=== PATIENT | female | born 1985 | race Caucasian/White ===

== ENCOUNTER 2016-08-01 07:38 | Emergency (ER) | payer OTHER ==
[~2016-08-01] VITALS: Wt 85.0 kg
[~2016-08-01 07:38] MED LIST: AMLO-218 PO; ASPI-664 PO; ATOR40TA68 PO; BUME2TAB18 PO; CALC667C PO; CARV25TA97 PO; CLON-379 PO; CYCL-319 PO; FLUO20CA38 PO; FOLI-49 PO; HYDR-3671 PO; HYDR-906 PO; IPRA12.93 IH; ISOS60TA PO; LOSA50TA6 PO; MECL25TA2 PO; NEPH PO; NIFE60TA7 PO; NOVO3I SC; PANT40TA3 PO
[2016-08-01] MEDS ORDERED: NAPR-260 PO (08:11)
--- NOTE | 2016-08-01 08:17 | ERD ---
ER Documentation Chief Complaint Date/Time DATE: 08/01/16 TIME: 08:14 Chief Complaint sore throat and coughing and mild abd pain for a few days. HPI 30 year old female comes in with sore throat, cough, upper abdominal pain, tactile fevers x 2 days. She describes general myalgias as well. No shortness of breath or chest pain. She denies travel history. ROS All systems reviewed and are negative except as per history of present illness. Medications Home Meds Active Scripts Naproxen* (Naprosyn*) 500 Mg Tablet, 500 MG PO BID Y for PAIN AND/OR INFLAMMATION, #30 TAB Prov:ZAC PADRON PA-C 08/01/16 Cyclobenzaprine Hcl* (Cyclobenzaprine Hcl*) 10 Mg Tablet, 10 MG PO TID, #15 TAB Prov:JAYJAY JAQUEZ INDEPENDENT [employer]ENT 05/26/16 Hydrocodone/Acetaminophen ([place] 5-325 Tablet) 1 Each Tablet, 1 TAB PO Q6H Y for SEVERE PAIN LEVEL 7-10, #7 TAB Prov:JAYJAY JAQUEZ NP 05/26/16 Insulin Aspart* (Novolog Insulin Pen*) 100 Unit/Ml Soln, 0 UNIT SC WITH MEALS BEDTIME, #2 BOX Prov:MONICA BRANDON 04/21/14 Amlodipine Besylate* (Norvasc*) 10 Mg Tablet, 10 MG PO DAILY for High Blood pressure , #60 TAB Prov:NEGRA WHITE MD 04/12/14 Carvedilol* (Coreg*) 25 Mg Tab, 25 MG PO BID for heart , #60 Prov:NEGRA WHITE MD 04/12/14 Reported Medications Nifedipine* (Nifedipine ER*) 60 Mg Tablet.sa, 60 MG PO DAILY, TAB.SA 04/15/14 Hydralazine Hcl* (Hydralazine Hcl*) 25 Mg Tab, 25 MG PO Q8, TAB 04/14/14 Calcium Acetate* (Calcium Acetate*) 667 Mg Capsule, 667 MG PO WITH MEALS, CAP 04/14/14 Multivit/Ca Carb/B Cmplx/Fa* (Syeda-Susie*) 1 Tab Tab, 1 TAB PO DAILY, TAB 04/14/14 Losartan Potassium* (Losartan Potassium*) 50 Mg Tablet, 50 MG PO DAILY, TAB 04/14/14 Folic Acid* (Folic Acid*) 1 Mg Tablet, 1 MG PO DAILY, TAB 04/14/14 Isosorbide Mononitrate* (Isosorbide Mononitrate*) 60 Mg Tab.er.24h, 60 MG PO DAILY, TAB 04/14/14 Clonidine Hcl* (Clonidine Hcl*) 0.1 Mg Tab, 0.1 MG PO Q6, TAB 04/05/14 Aspirin* (Aspirin* (EC)) 81 Mg Tablet.dr, 81 MG PO DAILY, TAB 04/05/14 Pantoprazole* (Protonix*) 40 Mg Tablet.dr, 40 MG PO AC BREAKFAST, TAB 01/11/14 Meclizine Hcl* (Antivert*) 25 Mg Tablet, 25 MG PO TID, TAB 01/11/14 Ipratropium [place]* (Atrovent HFA*) 12.9 Gm Aer.w.adap, 2 PUFF IH QID Y for SHORTNESS OF BREATH, EA 01/11/14 Fluoxetine Hcl* (Prozac*) 20 Mg Capsule, 20 MG PO DAILY, CAP 01/11/14 Bumetanide* (Bumetanide*) 2 Mg Tablet, 2 MG PO BID, TAB 01/11/14 Atorvastatin* (Atorvastatin*) 40 Mg Tablet, 40 MG PO HS, TAB 01/11/14 Allergies Allergies: Coded Allergies: No Known Allergy (Unverified , 05/26/16) PMhx/Soc History of Surgery: Yes (left upper arm a/v shunt, dialysis shunt right upper chest) Anesthesia Reaction: No Hx Neurological Disorder: No Hx Respiratory Disorders: No Hx Cardiac Disorders: Yes (htn, dm) Hx Psychiatric Problems: Yes (DEPRESSION) Hx Miscellaneous Medical Probl: Yes (legally blind) Hx Alcohol Use: No Hx Substance Use: No Hx Tobacco Use: No Physical Exam Vitals Vital Signs Date Time Temp Pulse Resp B/P Pulse Ox O2 Delivery O2 Flow Rate FiO2 08/01/16 07:46 98.8 88 21 169/81 98 Physical Exam General: Well-developed, well-nourished. The patient appears in no acute distress. HEENT: Head is normocephalic, atraumatic. No scleral icterus. Pupils are equal , round, and reactive. Oral mucous membranes are moist. No pharyngeal erythema. Neck: Supple. Nontender. Lungs: Clear to auscultation. Normal air movement. Heart: Regular rate and rhythm. S1 and S2 are normal. No murmurs, gallops, or rubs. Abdomen: Soft, nontender, nondistended. Bowel sounds are normoactive. Extremities: No clubbing or cyanosis. Normal pulses. Moving extremities x 4. No weakness. Neurologic: Alert and oriented 3. No focal deficits. Skin: Normal turgor. No rash or lesions. Results 24 hrs Current Medications Medications (Trade) Dose Ordered Sig/[place]ba Route PRN Reason Start Time Stop Time Status Last Admin Dose Admin Acetaminophen (Tylenol Tab) 650 mg ONCE ONCE PO 08/01/16 08:30 08/01/16 08:31 Ibuprofen (Motrin) 600 mg ONCE ONCE PO 08/01/16 08:30 08/01/16 08:31 Procedures/MDM ER COURSE: She was given tylenol and motrin weight based dosing. The patient is a 30 year old female who comes in with an acute upper respiratory infection, presumed viral. The patient has a differential diagnosis of a viral upper respiratory infection, bacterial upper respiratory infection, bronchitis, pneumonia, pharyngitis, laryngitis, epiglottitis, croup, pneumonia. Patient has a normal pulmonary examination, clear breath sounds, normal pulse oximetry, with no corrective measures needed at this time. Fluids, rest, antipyretics were encouraged. Departure Diagnosis: Primary Impression: Viral syndrome Condition: Good Patient Instructions: Viral Syndrome (Adult) Additional Instructions: Call your primary care doctor TOMORROW for an appointment during the next 1-2 days.See the doctor sooner or return here if your condition worsens before your appointment time. ZAC PADRON PA-C Aug 01, 2016 08:17
[2016-08-01] MEDS ORDERED: IBUPROFEN 600 MG TAB PO ONE (08:30)
[2016-08-01] MEDS ORDERED: ACETAMINOPHEN 325 MG TAB PO ONE (08:30)
== END 2016-08-01 08:31 | disposition home or self-care (01) ==
LOC: FTE 07:38
DX: B34.9 Viral infection, unspecified (principal); E11.9 Type 2 diabetes mellitus without complications; I12.0 Hypertensive chronic kidney disease with stage 5 chronic kidney disease or end stage renal disease; N18.6 End stage renal disease; Z79.82 Long term (current) use of aspirin; Z99.2 Dependence on renal dialysis; Z79.4 Long term (current) use of insulin
CPT/HCPCS: Z7502; Z7610; 99283

== ENCOUNTER 2016-08-01 11:00 | Emergency (ER) | payer OTHER ==
[~2016-08-01] VITALS: Ht 170.2 cm; Wt 85.0 kg
[~2016-08-01 11:00] MED LIST changes: +NAPR-260 PO
[2016-08-01 11:04] VITALS: Ht 170.2 cm; Wt 85.0 kg
[2016-08-01] MEDS ORDERED: SOD CHLORIDE 0.9% 500 ML IV STA (11:56)
[2016-08-01] MEDS ORDERED: KETOROLAC 15 MG INJ IV STA (11:56)
[2016-08-01] MEDS ORDERED: LORAZEPAM 2 MG INJ IV ONE (12:00)
== END 2016-08-01 12:26 | disposition left against medical advice (07) ==
LOC: E/R 11:00
DX: Z53.21 Procedure and treatment not carried out due to patient leaving prior to being seen by health care provider (principal)
CPT/HCPCS: J7040

== ENCOUNTER 2016-12-24 06:30 | Day surgery (SDC) | payer BC, OTHER ==
[2016-12-23 09:49] VITALS: BMI 30.4
[~2016-12-24] VITALS: Ht 170.2 cm; Wt 89.5 kg
[2016-12-24 07:00] VITALS: BP 137/71; PULSE 74; RESP 18; Ht 170.2 cm; Wt 89.5 kg
[2016-12-24] MEDS ORDERED: INSULIN ASPART [NOVOLOG] 3 ML PEN SC ONE ×3 (07:30→10:00)
[2016-12-24] MEDS ORDERED: THROMBIN 5000 UNIT VIAL ONE (07:43)
[2016-12-24] MEDS ORDERED: LIDOCAINE 1% (STERILE-PAK) 30 ML INJ ONE (07:43)
[2016-12-24] MEDS ORDERED: BUPIVACAINE 0.5% (SDV) 30 ML INJ ONE (07:43)
[2016-12-24] MEDS ORDERED: GELATIN SIZE 100 SPONGE ONE (07:43)
[2016-12-24] MEDS ORDERED: HEPARIN 1000 UNITS/ML 10 ML INJ ONE (07:43)
[2016-12-24 07:46] LABS: ADD SCAN DIFF NO
[2016-12-24 07:59] LABS: BASOPHIL # 0.1 10^3/ul (0.0-0.1); BASOPHILS % 0.7 % (0.0-2.0); EOSINOPHILS # 0.3 10^3/ul (0.0-0.5); EOSINOPHILS % 2.7 % (0.0-7.0); HEMATOCRIT 31.6 % (37.0-47.0); HEMOGLOBIN 10.7 g/dl (12.0-16.0); LYMPHOCYTES # 1.2 10^3/ul (0.8-2.9); LYMPHOCYTES % 11.5 % (15.0-51.0); MEAN CORPUSCULAR HEMOGLOBIN 31.6 pg (29.0-33.0); MEAN CORPUSCULAR HGB CONC 33.9 g/dl (32.0-37.0); MEAN CORPUSCULAR VOLUME 93.2 fl (82.0-101.0); MONOCYTE # 0.9 10^3/ul (0.3-0.9); MONOCYTES % 8.3 % (0.0-11.0); NEUTROPHIL # 8.1 10^3/ul (1.6-7.5); NEUTROPHILS % 76.4 % (39.0-77.0); PLATELET COUNT 166 10^3/UL (140-415); RED BLOOD COUNT 3.39 10^6/ul (4.20-5.40); RED CELL DISTRIBUTION WIDTH 13.9 % (11.5-14.5); WHITE BLOOD COUNT 10.5 10^3/ul (4.8-10.8)
[2016-12-24] MEDS ORDERED: ETOMIDATE 20 MG INJ ONE (08:02)
[2016-12-24] MEDS ORDERED: SUCCINYLCHOLINE CHLORIDE 100 MG/5 ML SYG IV ONE (08:02)
[2016-12-24] MEDS ORDERED: LIDOCAINE 1% (MDV) 20 ML INJ ONE (08:03)
[2016-12-24] MEDS ORDERED: ROCURONIUM 50 MG INJ ONE (08:04)
[2016-12-24 08:17] LABS: INR 0.92; PARTIAL THROMBOPLASTIN TIME 32.2 Sec (25.0-35.0); PROTIME 12.4 Sec (12.2-14.2)
--- NOTE | 2016-12-24 08:26 | RADRPT ---
PROCEDURE: XR Chest 1 View. CLINICAL INDICATION: Abnormal breath sounds, preop. TECHNIQUE: AP view of the chest was obtained. COMPARISON: April 27, 2016 FINDINGS: The cardiomediastinal silhouette is within normal limits. Right-sided dialysis catheter has its tip in the expected location of the cavoatrial junction. No consolidations are identified. No pneumotho rax is seen. Osseous structures are intact. IMPRESSION: No visualized active disease. RPTAT: AA .Regino Rangel MD, MD Date Time Electronically viewed and signed by .Regino Rangel MD, MD on 12/24/2016 08:26 .P/
[2016-12-24 08:45] LABS: ALBUMIN 4.5 g/dl (3.3-4.9); ALBUMIN/GLOBULIN RATIO 1.45; TOTAL PROTEIN 7.6 g/dl (6.1-8.1)
[2016-12-24 08:46] LABS: POTASSIUM 4.7 mmol/L (3.5-5.1)
[2016-12-24 08:48] LABS: CALCIUM 6.9 mg/dl (8.4-10.2); CREATININE 8.87 mg/dl (0.44-1.00)
[2016-12-24 09:30] VITALS: BP 151/77; PULSE 76; RESP 20
[2016-12-24] MEDS ORDERED: INSULIN REGULAR 10 ML INJ IV ONE (09:30)
--- NOTE | 2016-12-24 10:14 | RADRPT ---
Vent Rate: 73 bpm RR Interval: 0 msec [place] Interval: 162 msec QRS Duration: 94 msec QT Interval: 464 msec QTC Interval: 511 msec P-R-T [place]: 59 - 49 - 115 degrees Normal sinus rhythm T wave abnormality, consider lateral ischemia Prolonged QT Abnormal ECG Electronically Signed By: Curtis Guillermo [id number]
[2016-12-24] MEDS ORDERED: HYDR-3671 PO (10:45)
[2016-12-24] MEDS ORDERED: CARV25TA79 PO (10:46)
[2016-12-24] MEDS ORDERED: LANT3I SC (10:46)
[2016-12-24] MEDS ORDERED: AMLO5TAB4 PO (10:47)
[2016-12-24] MEDS ORDERED: FOLI1CAP8 PO (10:48)
[2016-12-24] MEDS ORDERED: LISI20TA11 PO (10:48)
[2016-12-24] MEDS ORDERED: DIVA500T15 PO (10:48)
[2016-12-24] MEDS ORDERED: IBUP800T25 PO (10:49)
[2016-12-24] MEDS ORDERED: MIDAZOLAM 1 MG/ML 2 ML INJ ONE (12:00)
[2016-12-24] MEDS ORDERED: ACET325T33 PO (13:18)
== END 2016-12-24 09:30 | disposition home or self-care (01) ==
LOC: SDS 06:30
PROVIDERS: ATTEND Surgery
DX: I12.0 Hypertensive chronic kidney disease with stage 5 chronic kidney disease or end stage renal disease (principal); N18.6 End stage renal disease; Z53.9 Procedure and treatment not carried out, unspecified reason; E11.9 Type 2 diabetes mellitus without complications; G40.909 Epilepsy, unspecified, not intractable, without status epilepticus
CPT/HCPCS: 71010; 80053; 82962; 84703; 85025; 85610; 85730; 93005; J1815; J2250; J7999; J1644; J3010

== ENCOUNTER 2016-12-24 09:48 | Emergency (ER) | payer BC, OTHER ==
[~2016-12-24] VITALS: Ht 160 cm; Wt 91.0 kg
[2016-12-24 09:53] VITALS: Ht 160 cm; Wt 91.0 kg
[2016-12-24] MEDS ORDERED: ONDANSETRON 4 MG INJ IV STA (10:01)
[2016-12-24] MEDS ORDERED: morphine 4 MG/ML VIAL IV STA (10:01)
[2016-12-24 10:11] LABS: ADD SCAN DIFF NO
[2016-12-24 10:17] LABS: BASOPHIL # 0.1 10^3/ul (0.0-0.1); BASOPHILS % 0.5 % (0.0-2.0); EOSINOPHILS # 0.2 10^3/ul (0.0-0.5); EOSINOPHILS % 2.3 % (0.0-7.0); HEMATOCRIT 32.5 % (37.0-47.0); LYMPHOCYTES # 1.4 10^3/ul (0.8-2.9); LYMPHOCYTES % 13.5 % (15.0-51.0); MEAN CORPUSCULAR HEMOGLOBIN 31.7 pg (29.0-33.0); MEAN CORPUSCULAR HGB CONC 33.8 g/dl (32.0-37.0); MEAN CORPUSCULAR VOLUME 93.7 fl (82.0-101.0); MEAN PLATELET VOLUME 11.8 fl (7.4-10.4); MONOCYTE # 0.9 10^3/ul (0.3-0.9); MONOCYTES % 8.2 % (0.0-11.0); NEUTROPHIL # 7.9 10^3/ul (1.6-7.5); NEUTROPHILS % 75.2 % (39.0-77.0); PLATELET COUNT 177 10^3/UL (140-415); RED BLOOD COUNT 3.47 10^6/ul (4.20-5.40); RED CELL DISTRIBUTION WIDTH 13.7 % (11.5-14.5); WHITE BLOOD COUNT 10.5 10^3/ul (4.8-10.8)
[2016-12-24 10:31] LABS: CALCIUM 7.2 mg/dl (8.4-10.2); CREATININE 9.16 mg/dl (0.44-1.00); POTASSIUM 4.5 mmol/L (3.5-5.1)
[2016-12-24] MEDS ORDERED: HYDR-3671 PO (10:45)
[2016-12-24] MEDS ORDERED: CARV25TA79 PO (10:46)
[2016-12-24] MEDS ORDERED: LANT3I SC (10:46)
[2016-12-24] MEDS ORDERED: AMLO5TAB4 PO (10:47)
[2016-12-24] MEDS ORDERED: FOLI1CAP8 PO (10:48)
[2016-12-24] MEDS ORDERED: DIVA500T15 PO (10:48)
[2016-12-24] MEDS ORDERED: LISI20TA11 PO (10:48)
[2016-12-24] MEDS ORDERED: IBUP800T25 PO (10:49)
[2016-12-24] MEDS ORDERED: CALCIUM GLUCONATE 10% 1 GM in SOD CHLORIDE 0.9% 100 ML IVPB ONE (11:00)
[2016-12-24] MEDS ORDERED: ACET325T33 PO (13:18)
--- NOTE | 2016-12-24 13:34 | ERD ---
ER Documentation Chief Complaint Date/Time DATE: 12/24/16 TIME: 13:34 Chief Complaint SENT TO ED FROM SAME DAY SURGERY D/Y ELEVATED BLOOD GLUCOSE HPI Patient is a 31-year-old female with dialysis, diabetes, and hypertension who presents for high blood sugar. She was at same-day surgery to get a fistula placed today. She had hyperglycemia and was given 2 doses of insulin. She started with bilateral leg cramps and came to the emergency department screaming in pain. The gentleman that is with her says that this is similar to her pain that she has had in the past. She takes [place]. She did not receive her dialysis today. Upon review of old medical records the patient has multiple visits to the ER for various complaints. Review of the emergency department information exchange shows visits to 4 separate emergency departments. ROS All systems reviewed and are negative except as per history of present illness. Medications Home Meds Active Scripts Acetaminophen* (Tylenol*) 325 Mg Tablet, 2 TAB PO Q6 Y for PAIN AND OR ELEVATED TEMP, #20 TAB Prov:REBEKA PAYNE MD 12/24/16 Reported Medications Ibuprofen* (Motrin*) 800 Mg Tab, 800 MG PO TID Y for PAIN, TAB 12/24/16 Lisinopril* (Lisinopril*) 20 Mg Tablet, 20 MG PO DAILY, #30 TAB 12/24/16 Divalproex Sodium* (Divalproex ER*) 500 Mg Tab.er.24h, 500 MG PO QHS, #30 TAB.SA 12/24/16 Folic Acid/Vitamin B Comp W-C (TERESTIA CAPS SOFTGEL) 1 Mg Capsule, 1 MG PO DAILY, CAP 12/24/16 Amlodipine Besylate* (Norvasc*) 5 Mg Tablet, 5 MG PO DAILY, TAB 12/24/16 Insulin Glargine* (Lantus*) 100 Unit/Ml Soln, 25 UNIT SC QHS, #1 VIAL 12/24/16 Carvedilol* (Carvedilol*) 25 Mg Tablet, 25 MG PO BID, #60 TAB 12/24/16 Hydralazine Hcl* (Hydralazine Hcl*) 25 Mg Tab, 25 MG PO BID Y for ELEVATED BLOOD PRESSURE, #60 TAB 12/24/16 Folic Acid* (Folic Acid*) 1 Mg Tablet, 1 MG PO DAILY, TAB 04/14/14 Aspirin* (Aspirin* (EC)) 81 Mg Tablet.dr, 81 MG PO DAILY, TAB 04/05/14 Fluoxetine Hcl* (Prozac*) 20 Mg Capsule, 20 MG PO DAILY, CAP 01/11/14 Atorvastatin* (Atorvastatin*) 40 Mg Tablet, 40 MG PO HS, TAB 01/11/14 Discontinued Reported Medications Nifedipine* (Nifedipine ER*) 60 Mg Tablet.sa, 60 MG PO DAILY, TAB.SA 04/15/14 Hydralazine Hcl* (Hydralazine Hcl*) 25 Mg Tab, 25 MG PO Q8, TAB 04/14/14 Calcium Acetate* (Calcium Acetate*) 667 Mg Capsule, 667 MG PO WITH MEALS, CAP 04/14/14 Multivit/Ca Carb/B Cmplx/Fa* (Syeda-Susie*) 1 Tab Tab, 1 TAB PO DAILY, TAB 04/14/14 Losartan Potassium* (Losartan Potassium*) 50 Mg Tablet, 50 MG PO DAILY, TAB 04/14/14 Isosorbide Mononitrate* (Isosorbide Mononitrate*) 60 Mg Tab.er.24h, 60 MG PO DAILY, TAB 04/14/14 Clonidine Hcl* (Clonidine Hcl*) 0.1 Mg Tab, 0.1 MG PO Q6, TAB 04/05/14 Pantoprazole* (Protonix*) 40 Mg Tablet.dr, 40 MG PO AC BREAKFAST, TAB 01/11/14 Meclizine Hcl* (Antivert*) 25 Mg Tablet, 25 MG PO TID, TAB 01/11/14 Ipratropium [place]* (Atrovent HFA*) 12.9 Gm Aer.w.adap, 2 PUFF IH QID Y for SHORTNESS OF BREATH, EA 01/11/14 Bumetanide* (Bumetanide*) 2 Mg Tablet, 2 MG PO BID, TAB 01/11/14 Discontinued Scripts Naproxen* (Naprosyn*) 500 Mg Tablet, 500 MG PO BID Y for PAIN AND/OR INFLAMMATION, #30 TAB Prov:ZAC PADRON PA-C 08/01/16 Cyclobenzaprine Hcl* (Cyclobenzaprine Hcl*) 10 Mg Tablet, 10 MG PO TID, #15 TAB Prov:JAYJAY JAQUEZ NP 05/26/16 Hydrocodone/Acetaminophen ([place] 5-325 Tablet) 1 Each Tablet, 1 TAB PO Q6H Y for SEVERE PAIN LEVEL 7-10, #7 TAB Prov:JAYJAY JAQUEZ NP 05/26/16 Insulin Aspart* (Novolog Insulin Pen*) 100 Unit/Ml Soln, 0 UNIT SC WITH MEALS BEDTIME, #2 BOX Prov:MONICA BRANDON 04/21/14 Amlodipine Besylate* (Norvasc*) 10 Mg Tablet, 10 MG PO DAILY for High Blood pressure , #60 TAB Prov:NEGRA WHITE MD 04/12/14 Carvedilol* (Coreg*) 25 Mg Tab, 25 MG PO BID for heart , #60 Prov:NEGRA WHITE MD 04/12/14 Allergies Allergies: Coded Allergies: No Known Allergy (Unverified , 12/24/16) PMhx/Soc History of Surgery: Yes (EYE DIALYSIS SHUNT SX, PERMA CATH PLACEMENT ) Anesthesia Reaction: No Hx Neurological Disorder: Yes (BLIND EYES ) Hx Respiratory Disorders: No Hx Cardiac Disorders: Yes (HTN ) Hx Psychiatric Problems: Yes (EPILIPSY , DEPRESSION ) Hx Miscellaneous Medical Probl: Yes (PERMACATH RIGHT UPPER CHEST , AV SHUNT LEFT ARM ) Hx Alcohol Use: No Hx Substance Use: No Hx Tobacco Use: No Smoking Status: Never smoker FmHx Family History: diabetes Physical Exam Vitals Vital Signs Date Time Temp Pulse Resp B/P Pulse Ox O2 Delivery O2 Flow Rate FiO2 12/24/16 11:00 86 16 122/62 100 12/24/16 09:53 98.9 78 16 168/91 100 Physical Exam Const: Moderate distress secondary to pain Head: Atraumatic Eyes: Blindness bilaterally chronic ENT: Normal External Ears, Nose and Mouth. Neck: Full range of motion..~ No meningismus. Resp: Clear to auscultation bilaterally Cardio: Regular rate and rhythm, no murmurs Abd: Soft, non tender, non distended. Normal bowel sounds Skin: No petechiae or rashes Back: No midline or flank tenderness Ext: No cyanosis, or edema, pulses to the lower extremities bilateral Neur: Awake Result Diagram: 12/24/16 1002 12/24/16 1002 Results 24 hrs Laboratory Tests Test 12/24/16 09:53 12/24/16 10:02 Bedside Glucose 266mg/dL White Blood Count 10.510^3/ul Red Blood Count 3.4710^6/ul Hemoglobin 11.0g/dl Hematocrit 32.5% Mean Corpuscular Volume 93.7fl Mean Corpuscular Hemoglobin 31.7pg Mean Corpuscular Hemoglobin Concent 33.8g/dl Red Cell Distribution Width 13.7% Platelet Count 68690^3/UL Mean Platelet Volume 11.8fl Neutrophils % 75.2% Lymphocytes % 13.5% Monocytes % 8.2% Eosinophils % 2.3% Basophils % 0.5% Nucleated Red Blood Cells % 0.0/100WBC Neutrophils # 7.910^3/ul Lymphocytes # 1.410^3/ul Monocytes # 0.910^3/ul Eosinophils # 0.210^3/ul Basophils # 0.110^3/ul Nucleated Red Blood Cells # 0.010^3/ul Sodium Level 133mmol/L Potassium Level 4.5mmol/L Chloride Level 98mmol/L Carbon Dioxide Level 18mmol/L Anion Gap 22 Blood Urea Nitrogen 65mg/dl Creatinine 9.16mg/dl Glucose Level 243mg/dl Calcium Level 7.2mg/dl Current Medications Medications (Trade) Dose Ordered Sig/[place] Route PRN Reason Start Time Stop Time Status Last Admin Dose Admin Morphine Sulfate (morphine) 4 mg ONCE STAT IV 12/24/16 10:01 12/24/16 10:02 DC 12/24/16 10:06 Ondansetron HCl 4 mg 4 mg ONCE STAT IV 12/24/16 10:01 12/24/16 10:02 DC 12/24/16 10:05 Calcium Gluconate/ Sodium Chloride (Ca Gluc/NS) 110 ml @ 110 mls/hr ONCE ONCE IVPB 12/24/16 11:00 12/24/16 11:59 DC 12/24/16 11:45 Procedures/MDM EKG read by me: Rate/Rhythm: Regular rate and rhythm at a normal rate Intervals: Normal Impression: No evidence of ischemia or arrhythmia Patient is a 31-year-old female who presents for hyperglycemia and leg cramping. The patient was found to have low calcium and was given 1 amp of calcium gluconate. Her potassium is normal at 4.5. She is chronic renal failure. There is no sign of ischemia or infection to the lower extremities bilaterally. She has a history of chronic pain. I believe outpatient management is appropriate at this point. I spoke with Dr. Goldstein who asked me to call Dr. Leon the vascular surgeon to see if the patient could have her fistula placed. He is unable to do the fistula at this time and the patient will need to reschedule. I did call the dialysis center and the patient will go directly from the emergency department to dialysis today. She can return for any worsening symptoms. Departure Diagnosis: Primary Impression: Cramps of lower extremity Laterality: bilateral Qualified Code: R25.2 - Cramp of both lower extremities Additional Impressions: Chronic pain Chronic pain type: other chronic pain Qualified Code: G89.29 - Other chronic pain Hyperglycemia Hypocalcemia Condition: Fair Patient Instructions: Hyperglycemia (High Blood Sugar) Additional Instructions: Go directly to your dialysis center for dialysis today. REBEKA PAYNE MD Dec 24, 2016 13:34
[2016-12-24 14:35] VITALS: BP 128/74; PULSE 74; RESP 19; TEMP 98.2
== END 2016-12-24 14:38 | disposition home or self-care (01) ==
LOC: E/R 09:48
DX: R25.2 Cramp and spasm (principal); G89.29 Other chronic pain; E83.51 Hypocalcemia; E11.65 Type 2 diabetes mellitus with hyperglycemia; I10 Essential (primary) hypertension; Z79.4 Long term (current) use of insulin; Z79.82 Long term (current) use of aspirin
CPT/HCPCS: 80048; 82962; 85025; J0610; J2270; J2405; 36415; 93005; 96374; 96375

== ENCOUNTER 2016-12-29 07:25 | Emergency (ER) | payer BC, OTHER ==
[~2016-12-29] VITALS: Wt 88.6 kg
[~2016-12-29 07:25] MED LIST changes: +ACET325T33 PO; -AMLO-218 PO; +AMLO5TAB4 PO; -BUME2TAB18 PO; -CALC667C PO; +CARV25TA79 PO; -CARV25TA97 PO; -CLON-379 PO; -CYCL-319 PO; +DIVA500T15 PO; +FOLI1CAP8 PO; -HYDR-906 PO; +IBUP800T25 PO; -IPRA12.93 IH; -ISOS60TA PO; +LANT3I SC; +LISI20TA11 PO; -LOSA50TA6 PO; -MECL25TA2 PO; -NAPR-260 PO; -NEPH PO; -NIFE60TA7 PO; -NOVO3I SC; -PANT40TA3 PO
[2016-12-29] MEDS ORDERED: FAMOTIDINE 20 MG INJ IV STA (08:28)
[2016-12-29] MEDS ORDERED: ONDANSETRON 4 MG INJ IV STA (08:28)
[2016-12-29 09:17] LABS: ADD SCAN DIFF NO
[2016-12-29 09:22] LABS: BASOPHIL # 0.1 10^3/ul (0.0-0.1); BASOPHILS % 0.8 % (0.0-2.0); EOSINOPHILS # 0.3 10^3/ul (0.0-0.5); EOSINOPHILS % 3.2 % (0.0-7.0); HEMATOCRIT 33.8 % (37.0-47.0); HEMOGLOBIN 11.1 g/dl (12.0-16.0); LYMPHOCYTES # 0.9 10^3/ul (0.8-2.9); LYMPHOCYTES % 10.4 % (15.0-51.0); MEAN CORPUSCULAR HEMOGLOBIN 30.7 pg (29.0-33.0); MEAN CORPUSCULAR HGB CONC 32.8 g/dl (32.0-37.0); MEAN CORPUSCULAR VOLUME 93.6 fl (82.0-101.0); MEAN PLATELET VOLUME 11.2 fl (7.4-10.4); MONOCYTE # 0.8 10^3/ul (0.3-0.9); MONOCYTES % 8.6 % (0.0-11.0); NEUTROPHIL # 6.9 10^3/ul (1.6-7.5); NEUTROPHILS % 76.6 % (39.0-77.0); PLATELET COUNT 223 10^3/UL (140-415); RED BLOOD COUNT 3.61 10^6/ul (4.20-5.40); RED CELL DISTRIBUTION WIDTH 13.8 % (11.5-14.5)
[2016-12-29 10:25] LABS: ALBUMIN 4.5 g/dl (3.3-4.9); ALBUMIN/GLOBULIN RATIO 1.45; CALCIUM 7.4 mg/dl (8.4-10.2); CREATININE 9.78 mg/dl (0.44-1.00); POTASSIUM 5.2 mmol/L (3.5-5.1); TOTAL PROTEIN 7.6 g/dl (6.1-8.1)
--- NOTE | 2016-12-29 10:43 | ERD ---
ER Documentation Chief Complaint Date/Time DATE: 12/29/16 TIME: 10:41 Chief Complaint unresolved n/v x4 days, blind hx diabetes, last dialysis tue. HPI This is a 31-year-old female with a history of progressive uncontrolled diabetes , subsequent blindness, and dialysis presents to the emergency room for evaluation of nausea and vomiting for the past 4 days. The patient states that she has vomited twice and is felt nauseous. She denies any diarrhea. She states that she gets dialysis Tuesday, Tuesday, Tuesday and came to the ER today for evaluation of nausea ROS All systems reviewed and are negative except as per history of present illness. Medications Home Meds Active Scripts Acetaminophen* (Tylenol*) 325 Mg Tablet, 2 TAB PO Q6 Y for PAIN AND OR ELEVATED TEMP, #20 TAB Prov:REBEKA PAYNE MD 12/24/16 Reported Medications Ibuprofen* (Motrin*) 800 Mg Tab, 800 MG PO TID Y for PAIN, TAB 12/24/16 Lisinopril* (Lisinopril*) 20 Mg Tablet, 20 MG PO DAILY, #30 TAB 12/24/16 Divalproex Sodium* (Divalproex ER*) 500 Mg Tab.er.24h, 500 MG PO QHS, #30 TAB.SA 12/24/16 Folic Acid/Vitamin B Comp W-C (TERESITA CAPS SOFTGEL) 1 Mg Capsule, 1 MG PO DAILY, CAP 12/24/16 Amlodipine Besylate* (Norvasc*) 5 Mg Tablet, 5 MG PO DAILY, TAB 12/24/16 Insulin Glargine* (Lantus*) 100 Unit/Ml Soln, 25 UNIT SC QHS, #1 VIAL 12/24/16 Carvedilol* (Carvedilol*) 25 Mg Tablet, 25 MG PO BID, #60 TAB 12/24/16 Hydralazine Hcl* (Hydralazine Hcl*) 25 Mg Tab, 25 MG PO BID Y for ELEVATED BLOOD PRESSURE, #60 TAB 12/24/16 Folic Acid* (Folic Acid*) 1 Mg Tablet, 1 MG PO DAILY, TAB 04/14/14 Aspirin* (Aspirin* (EC)) 81 Mg Tablet.dr, 81 MG PO DAILY, TAB 04/05/14 Fluoxetine Hcl* (Prozac*) 20 Mg Capsule, 20 MG PO DAILY, CAP 01/11/14 Atorvastatin* (Atorvastatin*) 40 Mg Tablet, 40 MG PO HS, TAB 01/11/14 Discontinued Reported Medications Nifedipine* (Nifedipine ER*) 60 Mg Tablet.sa, 60 MG PO DAILY, TAB.SA 04/15/14 Hydralazine Hcl* (Hydralazine Hcl*) 25 Mg Tab, 25 MG PO Q8, TAB 04/14/14 Calcium Acetate* (Calcium Acetate*) 667 Mg Capsule, 667 MG PO WITH MEALS, CAP 04/14/14 Multivit/Ca Carb/B Cmplx/Fa* ([place]eda-Susie*) 1 Tab Tab, 1 TAB PO DAILY, TAB 04/14/14 Losartan Potassium* (Losartan Potassium*) 50 Mg Tablet, 50 MG PO DAILY, TAB 04/14/14 Isosorbide Mononitrate* (Isosorbide Mononitrate*) 60 Mg Tab.er.24h, 60 MG PO DAILY, TAB 04/14/14 Clonidine Hcl* (Clonidine Hcl*) 0.1 Mg Tab, 0.1 MG PO Q6, TAB 04/05/14 Pantoprazole* (Protonix*) 40 Mg Tablet.dr, 40 MG PO AC BREAKFAST, TAB 01/11/14 Meclizine Hcl* (Antivert*) 25 Mg Tablet, 25 MG PO TID, TAB 01/11/14 Ipratropium [place]* (Atrovent HFA*) 12.9 Gm Aer.w.adap, 2 PUFF IH QID Y for SHORTNESS OF BREATH, EA 01/11/14 Bumetanide* (Bumetanide*) 2 Mg Tablet, 2 MG PO BID, TAB 01/11/14 Discontinued Scripts Naproxen* (Naprosyn*) 500 Mg Tablet, 500 MG PO BID Y for PAIN AND/OR INFLAMMATION, #30 TAB Prov:ZAC PADRON PA-C 08/01/16 Cyclobenzaprine Hcl* (Cyclobenzaprine Hcl*) 10 Mg Tablet, 10 MG PO TID, #15 TAB Prov:JAYJAY JAQUEZ NP 05/26/16 Hydrocodone/Acetaminophen ([place] 5-325 Tablet) 1 Each Tablet, 1 TAB PO Q6H Y for SEVERE PAIN LEVEL 7-10, #7 TAB Prov:JAYJAY JAQUEZ NP 05/26/16 Insulin Aspart* (Novolog Insulin Pen*) 100 Unit/Ml Soln, 0 UNIT SC WITH MEALS BEDTIME, #2 BOX Prov:MONICA BRANDON 04/21/14 Amlodipine Besylate* (Norvasc*) 10 Mg Tablet, 10 MG PO DAILY for High Blood pressure , #60 TAB Prov:NEGRA WHITE MD 04/12/14 Carvedilol* (Coreg*) 25 Mg Tab, 25 MG PO BID for heart , #60 Prov:NEGRA WHITE MD 04/12/14 Allergies Allergies: Coded Allergies: No Known Allergy (Unverified , 12/24/16) PMhx/Soc History of Surgery: Yes (EYE DIALYSIS SHUNT SX, PERMA CATH PLACEMENT ) Anesthesia Reaction: No Hx Neurological Disorder: Yes (BLIND EYES ) Hx Respiratory Disorders: No Hx Cardiac Disorders: Yes (HTN ) Hx Psychiatric Problems: Yes (EPILIPSY , DEPRESSION ) Hx Miscellaneous Medical Probl: Yes (PERMACATH RIGHT UPPER CHEST , AV SHUNT LEFT ARM, DIALYSIS) Hx Alcohol Use: No Hx Substance Use: No Hx Tobacco Use: No Smoking Status: Never smoker Physical Exam Vitals Vital Signs Date Time Temp Pulse Resp B/P Pulse Ox O2 Delivery O2 Flow Rate FiO2 12/29/16 07:34 98.3 75 20 190/95 100 Physical Exam Const: No acute distress Head: Atraumatic Eyes: Normal Conjunctiva ENT: Normal External Ears, Nose and Mouth. Neck: Full range of motion..~ No meningismus. Resp: Clear to auscultation bilaterally Cardio: Regular rate and rhythm, no murmurs Abd: Soft, non tender, non distended. Normal bowel sounds Skin: Permacath right anterior chest wall, no petechiae or rashes Back: No midline or flank tenderness Ext: No cyanosis, or edema Neur: Awake and alert Psych: Normal Mood and Affect Result Diagram: 12/29/16 0845 12/29/16 0845 Results 24 hrs Laboratory Tests Test 12/29/16 08:45 White Blood Count 9.010^3/ul Red Blood Count 3.6110^6/ul Hemoglobin 11.1g/dl Hematocrit 33.8% Mean Corpuscular Volume 93.6fl Mean Corpuscular Hemoglobin 30.7pg Mean Corpuscular Hemoglobin Concent 32.8g/dl Red Cell Distribution Width 13.8% Platelet Count 20401^3/UL Mean Platelet Volume 11.2fl Neutrophils % 76.6% Lymphocytes % 10.4% Monocytes % 8.6% Eosinophils % 3.2% Basophils % 0.8% Nucleated Red Blood Cells % 0.0/100WBC Neutrophils # 6.910^3/ul Lymphocytes # 0.910^3/ul Monocytes # 0.810^3/ul Eosinophils # 0.310^3/ul Basophils # 0.110^3/ul Nucleated Red Blood Cells # 0.010^3/ul Sodium Level 135mmol/L Potassium Level 5.2mmol/L Chloride Level 97mmol/L Carbon Dioxide Level 20mmol/L Anion Gap 23 Blood Urea Nitrogen 66mg/dl Creatinine 9.78mg/dl Glucose Level 308mg/dl Calcium Level 7.4mg/dl Total Bilirubin 0.0mg/dl Direct Bilirubin 0.00mg/dl Indirect Bilirubin 0.0mg/dl Aspartate Amino Transf (AST/SGOT) 17IU/L Alanine Aminotransferase (ALT/SGPT) 25IU/L Alkaline Phosphatase 67IU/L Total Protein 7.6g/dl Albumin 4.5g/dl Globulin 3.10g/dl Albumin/Globulin Ratio 1.45 Lipase 155U/L Current Medications Medications (Trade) Dose Ordered Sig/[place] Route PRN Reason Start Time Stop Time Status Last Admin Dose Admin Ondansetron HCl (Zofran Inj) 4 mg ONCE STAT IV 12/29/16 08:28 12/29/16 08:29 DC 12/29/16 08:50 Famotidine (Pepcid Iv) 20 mg ONCE STAT IV 12/29/16 08:28 12/29/16 08:30 DC 12/29/16 08:50 Procedures/MDM This 31-year-old female presents to the ER for evaluation of nausea and vomiting. When I evaluated this patient she was in no acute distress. The patient had no tenderness to palpation of her abdomen on my examination. Lab work was obtained which does show chronic renal insufficiency, mild hyperkalemia. The patient was given Zofran and Pepcid and when I reevaluated this patient she says she is feeling much better at this time. The patient will be discharged home with a prescription for Zofran and instructions to follow-up with dialysis today for reappointment. Departure Diagnosis: Primary Impression: Mild nausea and vomiting Additional Impressions: End stage renal disease Uncontrolled diabetes mellitus Condition: Stable MÓNICA JARA DO Dec 29, 2016 10:43
[2016-12-29] MEDS ORDERED: ONDA4TAB8 PO (10:46)
[2016-12-29] MEDS ORDERED: METOCLOPRAMIDE 10 MG INJ IV STA (11:05)
[2016-12-29 11:42] VITALS: BP 175/80; PULSE 80; RESP 17
[2016-12-29] MEDS ORDERED: HYDROCODONE/APAP (5/325) TAB PO ONE (12:00)
== END 2016-12-29 12:05 | disposition home or self-care (01) ==
LOC: E/R 07:25
DX: R11.2 Nausea with vomiting, unspecified (principal); I12.0 Hypertensive chronic kidney disease with stage 5 chronic kidney disease or end stage renal disease; N18.6 End stage renal disease; E11.9 Type 2 diabetes mellitus without complications; Z79.4 Long term (current) use of insulin; Z79.82 Long term (current) use of aspirin; Z99.2 Dependence on renal dialysis
CPT/HCPCS: 36415; 80053; 83690; 85025; 96374; 96375; 99284; J2405; J2765

== ENCOUNTER 2017-01-21 13:59 | Emergency (ER) | payer BC, OTHER ==
[~2017-01-21] VITALS: Ht 172.7 cm; Wt 90.0 kg
[~2017-01-21 13:59] MED LIST changes: +ONDA4TAB8 PO
[2017-01-21 14:01] VITALS: Ht 172.7 cm; Wt 90.0 kg
[2017-01-21] MEDS ORDERED: ONDANSETRON (ODT) 4 MG TAB ODT STA (14:56)
[2017-01-21] MEDS ORDERED: LORAZEPAM 2 MG INJ IM ONE (15:00)
[2017-01-21] MEDS ORDERED: ONDANSETRON 4 MG INJ ONE (15:17)
[2017-01-21] MEDS ORDERED: ONDANSETRON 4 MG INJ IV STA (15:19)
--- NOTE | 2017-01-21 16:20 | ERD ---
ER Documentation Chief Complaint Date/Time DATE: 01/21/17 TIME: 16:13 Chief Complaint BIB RA FOR EVAL OF N/V AFTER HD HPI 31-year-old woman brought in by EMS for complaints of nausea and vomiting status post hemodialysis. Patient has a long history of end-stage kidney disease and recurrent vomiting. She has been seen and evaluated here multiple times for similar symptoms. Patient states he fell about 2 weeks ago and injured her scalp and since then has had intermittent headaches. She states the day it happened she underwent CT scan of the brain which was unremarkable, followed by a second CT scan of the brain a week later which was read as normal as well. She denies fevers or chills, no chest pain, no paresis or paresthesias , no abdominal pain, no suicidal homicidal ideation. ROS All systems reviewed and are negative except as per history of present illness. Medications Home Meds Active Scripts Ondansetron Hcl* (Zofran*) 4 Mg Tablet, 4 MG PO Q6H for NAUSEA AND/OR VOMITING, #10 TAB Prov:MÓNICA JARA DO 12/29/16 Acetaminophen* (Tylenol*) 325 Mg Tablet, 2 TAB PO Q6 Y for PAIN AND OR ELEVATED TEMP, #20 TAB Prov:REBEKA PAYNE MD 12/24/16 Reported Medications Ibuprofen* (Motrin*) 800 Mg Tab, 800 MG PO TID Y for PAIN, TAB 12/24/16 Lisinopril* (Lisinopril*) 20 Mg Tablet, 20 MG PO DAILY, #30 TAB 12/24/16 Divalproex Sodium* (Divalproex ER*) 500 Mg Tab.er.24h, 500 MG PO QHS, #30 TAB.SA 12/24/16 Folic Acid/Vitamin B Comp W-C (TERESITA CAPS SOFTGEL) 1 Mg Capsule, 1 MG PO DAILY, CAP 12/24/16 Amlodipine Besylate* (Norvasc*) 5 Mg Tablet, 5 MG PO DAILY, TAB 12/24/16 Insulin Glargine* (Lantus*) 100 Unit/Ml Soln, 25 UNIT SC QHS, #1 VIAL 12/24/16 Carvedilol* (Carvedilol*) 25 Mg Tablet, 25 MG PO BID, #60 TAB 12/24/16 Hydralazine Hcl* (Hydralazine Hcl*) 25 Mg Tab, 25 MG PO BID Y for ELEVATED BLOOD PRESSURE, #60 TAB 12/24/16 Folic Acid* (Folic Acid*) 1 Mg Tablet, 1 MG PO DAILY, TAB 04/14/14 Aspirin* (Aspirin* (EC)) 81 Mg Tablet.dr, 81 MG PO DAILY, TAB 04/05/14 Fluoxetine Hcl* (Prozac*) 20 Mg Capsule, 20 MG PO DAILY, CAP 01/11/14 Atorvastatin* (Atorvastatin*) 40 Mg Tablet, 40 MG PO HS, TAB 01/11/14 Allergies Allergies: Coded Allergies: No Known Allergy (Unverified , 01/21/17) PMhx/Soc Chronic recurrent vomiting, hypertension, end-stage kidney disease, psychiatric illness, blindness, anxiety, diabetes mellitus History of Surgery: Yes (EYE DIALYSIS SHUNT SX, PERMA CATH PLACEMENT ) Anesthesia Reaction: No Hx Neurological Disorder: Yes (BLIND EYES ) Hx Respiratory Disorders: No Hx Cardiac Disorders: Yes (HTN ) Hx Psychiatric Problems: Yes (EPILePSY , DEPRESSION ) Hx Miscellaneous Medical Probl: Yes (PERMACATH RIGHT UPPER CHEST , AV SHUNT LEFT ARM, DIALYSIS) Hx Alcohol Use: No Hx Substance Use: No Hx Tobacco Use: No Smoking Status: Never smoker FmHx Family History: No diabetes Physical Exam Vitals Vital Signs Date Time Temp Pulse Resp B/P Pulse Ox O2 Delivery O2 Flow Rate FiO2 01/21/17 14:01 97.9 83 20 186/89 99 Physical Exam GENERAL: Well-developed, well-nourished, anxious, afebrile HEENT: Moist mucous membranes, pink conjunctiva, no cervical spine tenderness or step-off deformities, no goiter, no jaundice or icterus, extraocular movements intact without pain. No submandibular induration, and no pharyngeal erythema NEURO: Alert and oriented 3, cranial nerves II through XII intact bilaterally, pupils equal round reactive to light, no focal deficits or facial asymmetry, sensation intact distally Strength 5/5 in upper and lower extremities bilaterally CARDIAC: Regular rate and rhythm, no murmurs rubs or gallops LUNGS: Clear bilaterally no wheezing crackles or stridor ABDOMEN: Soft nontender, no guarding, no rigidity, no rebound, no psoas sign no obturator sign. Normoactive bowel sounds SKIN: Warm and dry to touch, no abrasions, contusions, or hematomas, no lacerations, no ecchymosis, no target lesions, and without ulcers EXTREMITIES: No clubbing cyanosis or edema, calves are bilaterally symmetrical, no Homans sign, no popliteal cord sign. Distal pulses equal and bilateral PSYCH: Anxious Results 24 hrs Laboratory Tests Test 01/21/17 15:01 Bedside Glucose 271mg/dL Current Medications Medications (Trade) Dose Ordered Sig/Elba Route PRN Reason Start Time Stop Time Status Last Admin Dose Admin Ondansetron HCl (Zofran Odt) 4 mg ONCE STAT ODT 01/21/17 14:56 01/21/17 15:21 DC 01/21/17 15:12 Lorazepam (Ativan) 0.5 mg ONCE ONCE IM 01/21/17 15:00 01/21/17 15:01 DC 01/21/17 15:12 Ondansetron HCl (Zofran Inj) 4 mg STK-MED ONCE .ROUTE 01/21/17 15:17 01/21/17 15:18 DC Ondansetron HCl (Zofran Inj) 4 mg ONCE STAT IV 01/21/17 15:19 01/21/17 15:23 DC 01/21/17 15:24 Oxycodone/ Acetaminophen (Percocet (5/ 325)) 1 tab ONCE ONCE PO 01/21/17 16:30 01/21/17 16:31 Procedures/MDM Patient was triaged to the waiting room initially given her initial complaints and vital signs, although after being placed in the waiting room she stopped talking and could not be properly registered so she was brought to the ED immediately. She appears anxious and has no vomiting although given her initial complaints I administered Zofran 4 mg intramuscular injection, lorazepam 0.5 mg intramuscular injection with improvement in symptoms. Patient's mental status improved to baseline and for complaints of headache she received Percocet 1 tablet p.o. Her initial hypertension improved as well. Differential diagnoses considered, included but not limited to acute coronary syndrome, pulmonary embolism, aortic dissection, abdominal aortic aneurysm, sepsis, stroke, meningitis, encephalitis, pneumonia, appendicitis, cholecystitis , bowel obstruction, pyelonephritis, nephrolithiasis, cystitis, as well as metabolic, hematologic, and electrolyte abnormalities. As well as abscess, cellulitis, fractures, and dislocations. Patient feels much better at this time, and vital signs are normal, symptoms have improved. I did give strict instructions to return to the ED if symptoms continue or worsen, patient will otherwise follow-up with primary care physician. Patient understood instructions and agreed to plan. Disclaimer: Inadvertent spelling and grammatical errors are likely due to EHR/ dictation software use and do not reflect on the overall quality of patient care. Also, please note that the electronic time recorded on this note does not necessarily reflect the actual time of the patient encounter. Departure Diagnosis: Primary Impression: Nausea and vomiting Vomiting type: unspecified Vomiting Intractability: unspecified Qualified Code: R11.2 - Nausea and vomiting, intractability of vomiting not specified, unspecified vomiting type Additional Impressions: Headache Headache type: tension-type Headache chronicity pattern: unspecified pattern Intractability: not intractable Qualified Code: G44.209 - Tension- type headache, not intractable, unspecified chronicity pattern End stage kidney disease Anxiety Hypertension Hypertension type: essential hypertension Qualified Code: I10 - Essential hypertension Condition: Good Patient Instructions: Nausea and Vomiting-Adult, Headache, Tension Referrals: GWENDOLYN GARCIA MD (PCP) GALILEO RUCKER MD Jan 21, 2017 16:20
[2017-01-21] MEDS ORDERED: OXYCODONE/ACETAMINOPHEN (5/325) TAB PO ONE (16:30)
[2017-01-21 17:44] VITALS: BP 168/94; PULSE 87; RESP 20
== END 2017-01-21 20:26 | disposition home or self-care (01) ==
LOC: E/R 13:59
DX: R11.2 Nausea with vomiting, unspecified (principal); G44.209 Tension-type headache, unspecified, not intractable; I12.0 Hypertensive chronic kidney disease with stage 5 chronic kidney disease or end stage renal disease; N18.6 End stage renal disease; F41.9 Anxiety disorder, unspecified; E11.9 Type 2 diabetes mellitus without complications; Z79.4 Long term (current) use of insulin; Z79.82 Long term (current) use of aspirin
CPT/HCPCS: 82962; 96372; 96374; J2060; J2405; Z7502; Z7610

== ENCOUNTER 2017-02-07 11:44 | Emergency (ER) | payer OTHER ==
[~2017-02-07] VITALS: Ht 175.3 cm; Wt 100.0 kg
[2017-02-07 11:55] VITALS: Ht 175.3 cm; Wt 100.0 kg
[2017-02-07] MEDS ORDERED: ONDANSETRON 4 MG INJ IV STA (11:58)
--- NOTE | 2017-02-07 12:11 | ERA ---
ER Documentation Chief Complaint Date/Time DATE: 02/07/17 TIME: 12:05 Chief Complaint BIB RA FOR EVAL OF ABD PAIN. EMS PICKED HER UP FROM DIALYSIS HPI This is a 31-year-old female with a past medical history of poorly controlled diabetes mellitus, hypertension, end-stage renal disease on hemodialysis Tuesday , Tuesday and Tuesday, chronic anemia, blindness with previous retinal detachment in the past, hyperlipidemia, seizure disorder, depression, anxiety who is presenting with acute onset abdominal pain. The patient was reportedly at an outside facility 1-2 days ago for abdominal pain. She had a mild anemia with hemoglobin of 8.7. She had an elevated creatinine at 11.47. Her electrolytes were unremarkable. After her workup, she was ultimately discharged. She was at dialysis this morning when her abdominal pain started to develop again. She developed diffuse abdominal pain with nausea and dry heaving. She felt well prior to dialysis. She has not been sick recently. She denies any fever or chills. She denies any chest pain or trouble breathing. The patient was not entirely compliant with history given her significant pain. She required significant redirection multiple times but a history was able to be obtained. ROS All systems reviewed and are negative except as per history of present illness. Medications Home Meds Active Scripts Ondansetron Hcl* (Zofran*) 4 Mg Tablet, 4 MG PO Q6H for NAUSEA AND/OR VOMITING, #10 TAB Prov:MÓNICA JARA DO 12/29/16 Acetaminophen* (Tylenol*) 325 Mg Tablet, 2 TAB PO Q6 Y for PAIN AND OR ELEVATED TEMP, #20 TAB Prov:REBEKA PAYNE MD 12/24/16 Reported Medications Ibuprofen* (Motrin*) 800 Mg Tab, 800 MG PO TID Y for PAIN, TAB 12/24/16 Lisinopril* (Lisinopril*) 20 Mg Tablet, 20 MG PO DAILY, #30 TAB 12/24/16 Divalproex Sodium* (Divalproex ER*) 500 Mg Tab.er.24h, 500 MG PO QHS, #30 TAB.SA 12/24/16 Folic Acid/Vitamin B Comp W-C (TERESITA CAPS SOFTGEL) 1 Mg Capsule, 1 MG PO DAILY, CAP 12/24/16 Amlodipine Besylate* (Norvasc*) 5 Mg Tablet, 5 MG PO DAILY, TAB 12/24/16 Insulin Glargine* (Lantus*) 100 Unit/Ml Soln, 25 UNIT SC QHS, #1 VIAL 12/24/16 Carvedilol* (Carvedilol*) 25 Mg Tablet, 25 MG PO BID, #60 TAB 12/24/16 Hydralazine Hcl* (Hydralazine Hcl*) 25 Mg Tab, 25 MG PO BID Y for ELEVATED BLOOD PRESSURE, #60 TAB 12/24/16 Folic Acid* (Folic Acid*) 1 Mg Tablet, 1 MG PO DAILY, TAB 04/14/14 Aspirin* (Aspirin* (EC)) 81 Mg Tablet.dr, 81 MG PO DAILY, TAB 04/05/14 Fluoxetine Hcl* (Prozac*) 20 Mg Capsule, 20 MG PO DAILY, CAP 01/11/14 Atorvastatin* (Atorvastatin*) 40 Mg Tablet, 40 MG PO HS, TAB 01/11/14 Allergies Allergies: Coded Allergies: No Known Allergy (Unverified , 01/21/17) PMhx/Soc History of Surgery: Yes (EYE DIALYSIS SHUNT SX, PERMA CATH PLACEMENT ) Anesthesia Reaction: No Hx Neurological Disorder: Yes (BLIND EYES ) Hx Respiratory Disorders: No Hx Cardiac Disorders: Yes (HTN ) Hx Psychiatric Problems: Yes (EPILePSY , DEPRESSION ) Hx Miscellaneous Medical Probl: Yes (PERMACATH RIGHT UPPER CHEST , AV SHUNT LEFT ARM, DIALYSIS) Hx Alcohol Use: No Hx Substance Use: No Hx Tobacco Use: No FmHx Family History: diabetes Physical Exam Vitals Vital Signs Date Time Temp Pulse Resp B/P Pulse Ox O2 Delivery O2 Flow Rate FiO2 02/07/17 14:00 98.0 100 23 136/59 99 Room Air 02/07/17 11:55 97.9 122 26 145/110 97 Physical Exam Const: [] Head: Atraumatic Eyes: Normal Conjunctiva ENT: Normal External Ears, Nose and Mouth. Neck: Full range of motion..~ No meningismus. Resp: Clear to auscultation bilaterally Cardio: Regular rate and rhythm, no murmurs Abd: Soft, non tender, non distended. Normal bowel sounds Skin: No petechiae or rashes Back: No midline or flank tenderness Ext: No cyanosis, or edema Neur: Awake and alert Psych: Normal Mood and Affect Result Diagram: 02/07/17 1305 02/07/17 1305 Results 24 hrs Laboratory Tests Test 02/07/17 13:05 White Blood Count 6.010^3/ul Red Blood Count 2.4710^6/ul Hemoglobin 7.6g/dl Hematocrit 22.7% Mean Corpuscular Volume 91.9fl Mean Corpuscular Hemoglobin 30.8pg Mean Corpuscular Hemoglobin Concent 33.5g/dl Red Cell Distribution Width 12.6% Platelet Count 84131^3/UL Mean Platelet Volume 11.4fl Neutrophils % 89.8% Lymphocytes % 6.5% Monocytes % 0.5% Eosinophils % 2.5% Basophils % 0.2% Nucleated Red Blood Cells % 0.0/100WBC Neutrophils # 5.410^3/ul Lymphocytes # 0.410^3/ul Monocytes # 0.010^3/ul Eosinophils # 0.210^3/ul Basophils # 0.010^3/ul Nucleated Red Blood Cells # 0.010^3/ul Sodium Level 140mmol/L Potassium Level 3.7mmol/L Chloride Level 96mmol/L Carbon Dioxide Level 26mmol/L Anion Gap 22 Blood Urea Nitrogen 29mg/dl Creatinine 6.00mg/dl Glucose Level 113mg/dl Lactic Acid Level 0.8mmol/L Calcium Level 7.9mg/dl Total Bilirubin 0.2mg/dl Direct Bilirubin 0.00mg/dl Indirect Bilirubin 0.2mg/dl Aspartate Amino Transf (AST/SGOT) 47IU/L Alanine Aminotransferase (ALT/SGPT) 38IU/L Alkaline Phosphatase 89IU/L Troponin I 0.018ng/ml Total Protein 7.4g/dl Albumin 3.8g/dl Globulin 3.60g/dl Albumin/Globulin Ratio 1.05 Lipase 208U/L Beta HCG, Quantitative < 2.4mIU/ml Current Medications Medications (Trade) Dose Ordered Sig/Elba Route PRN Reason Start Time Stop Time Status Last Admin Dose Admin Ondansetron HCl (Zofran Inj) 4 mg ONCE STAT IV 02/07/17 11:58 02/07/17 12:00 DC 02/07/17 12:45 Morphine Sulfate (morphine) 4 mg ONCE STAT IV 02/07/17 12:24 02/07/17 12:25 DC 02/07/17 12:45 Procedures/MDM The patient presents with abdominal pain and warrants abdominal workup. Blood work was obtained and reviewed. It showed no leukocytosis. There was a left shift, but the patient has been afebrile in our emergency department and I do not suspect an infectious etiology of her symptoms at this time. The patient is anemic with a hemoglobin of 7.6. This is likely associated with anemia of chronic disease. The patient does not endorse any bloody or dark or tarry stools. The patient does have very mild anion gap metabolic acidosis, which again is likely associated with her kidney dysfunction. Her creatinine is elevated as well. These are all chronic changes. The patient's lipase is within normal limits and I do not suspect pancreatitis. The patient is not . She does not have a significant metabolic derangement that would be associated with her abdominal pain. The patient's lactic acid is also negative. I have low suspicion for mesenteric ischemia or ischemic colitis. He does not appear that a CAT scan was obtained during her previous visit at the outside hospital. One was obtained today that demonstrated no acute infectious or inflammatory etiology. EKG read by me: Rate/Rhythm: Regular rhythm, sinus tachycardia at a rate of 116 Intervals: Normal [place]: Normal Impression: No evidence of ischemia or arrhythmia The patient was given Zofran and morphine in the emergency department with complete resolution of her symptoms. She was monitored for several hours after her dose of morphine and she remained calm, able to sleep. Additionally, her tachycardia resolved with a heart rate in the 70s. At this time, the patient stable for discharge. 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 The patient will be given instructions to follow-up. She will be given precautions with which to return to the emergency department. Departure Diagnosis: Primary Impression: Abdominal pain Additional Impressions: Anemia in chronic kidney disease Chronic kidney disease Qualified Code: N18.9 - Chronic kidney disease, unspecified stage Condition: Stable Patient Instructions: Abdominal Pain AMELIE QUINTERO MD Feb 07, 2017 12:11
[2017-02-07] MEDS ORDERED: morphine 4 MG/ML VIAL IV STA (12:24)
[2017-02-07 13:26] LABS: ABNORMAL IP MESSAGE 1; BASOPHILS % 0.2 % (0.0-2.0); EOSINOPHILS # 0.2 10^3/ul (0.0-0.5); EOSINOPHILS % 2.5 % (0.0-7.0); HEMATOCRIT 22.7 % (37.0-47.0); HEMOGLOBIN 7.6 g/dl (12.0-16.0); LYMPHOCYTES # 0.4 10^3/ul (0.8-2.9); LYMPHOCYTES % 6.5 % (15.0-51.0); MEAN CORPUSCULAR HEMOGLOBIN 30.8 pg (29.0-33.0); MEAN CORPUSCULAR HGB CONC 33.5 g/dl (32.0-37.0); MEAN CORPUSCULAR VOLUME 91.9 fl (82.0-101.0); MEAN PLATELET VOLUME 11.4 fl (7.4-10.4); MONOCYTES % 0.5 % (0.0-11.0); NEUTROPHIL # 5.4 10^3/ul (1.6-7.5); NEUTROPHILS % 89.8 % (39.0-77.0); PLATELET COUNT 159 10^3/UL (140-415); POSITIVE DIFF @See below; RED BLOOD COUNT 2.47 10^6/ul (4.20-5.40); RED CELL DISTRIBUTION WIDTH 12.6 % (11.5-14.5)
[2017-02-07 13:59] LABS: ALBUMIN 3.8 g/dl (3.3-4.9); ALBUMIN/GLOBULIN RATIO 1.05; BILIRUBIN,INDIRECT 0.2 mg/dl (0-1.1); BILIRUBIN,TOTAL 0.2 mg/dl (0.2-1.3); CALCIUM 7.9 mg/dl (8.4-10.2); POTASSIUM 3.7 mmol/L (3.5-5.1); TOTAL PROTEIN 7.4 g/dl (6.1-8.1)
[2017-02-07 14:10] LABS: TROPONIN-I 0.018 ng/ml (0.00-0.12)
--- NOTE | 2017-02-07 14:48 | RADRPT ---
PROCEDURE: CT abdomen and pelvis without contrast. CLINICAL INDICATION: Abdominal pain. TECHNIQUE: CT scan of the abdomen and pelvis without contrast was performed on a multi-slice [facility] . Oral contrast was also administered. Sagittal and coronal reformatted images were obtaine d from the axial source images. One or more of the following dose reduction techniques were used: - Automated exposure control. - Adjustment of the mA and/or kV according to patient size. - Use of iterative reconstruction technique. DLP 1319.5 mGycm. CTDIvol 20 mGy COMPARISON: CT urogram 11/18/2015 FINDINGS: Mild bibasilar ground-glass atelectasis is present. The heart is moderately enlarged. Central line catheter partially visualized in the superior cavoatrial junction. There is limited evaluation of th e solid viscera from the lack of IV contrast. The kidneys are symmetric bilaterally with no evidence of renal or ureteral calculi. The kidneys ar e moderately atrophic bilaterally. There is no hydronephrosis or perinephric stranding. There is normal density of the liver with no gross focal lesion or biliary ductal dilatation. The gallbladder is unremarkable without inflammation. The spleen is unremarkable without mass. The adrenal glands are within normal limits without mass. The pancreas is unremarkable without focal lesion or surrounding inflammatory changes. There is no bowel obstruction or focal bowel inflammation. The appendix is unremarkable. There is a moderately diffusely fecal filled colon. There is no free air or free fluid. There are no enlarged lymph nodes. There are multiple nonenlarged lymph nodes seen within the retroperitoneal fat around the aorta. There is aortic atherosclerosis without aneurysmal dilatation. Mild degenerative changes are seen in the lumbar spine with no acute osseous abnormality. The uterus and adnexal structures are grossly unremarkable. IMPRESSION: No evidence of renal or ureteral calculi or hydronephrosis. Kidneys are atrophic. Findings in the lower lungs could represent mild pulmonary edema. There is moderate cardiomegaly. No evidence of bowel obstruction or inflammation. There is a fecal filled colon. Mild prominence of the number of nonenlarged lymph nodes present within the retroperitoneal fat arou nd the aorta. These are of indeterminate significance. Atherosclerotic disease is present. RPTAT: AA .Khmadeleine Wayne MD, MD Date Time Electronically viewed and signed by .Juan M Wayne MD, MD on 02/07/2017 14:47 .J/
[2017-02-07 17:09] VITALS: BP 151/77; PULSE 83; RESP 19; TEMP 98
== END 2017-02-07 17:45 | disposition home or self-care (01) ==
LOC: E/R 11:44
DX: R10.9 Unspecified abdominal pain (principal); D63.1 Anemia in chronic kidney disease; E11.22 Type 2 diabetes mellitus with diabetic chronic kidney disease; N18.6 End stage renal disease; I12.0 Hypertensive chronic kidney disease with stage 5 chronic kidney disease or end stage renal disease; Z79.4 Long term (current) use of insulin; Z79.82 Long term (current) use of aspirin; Z99.2 Dependence on renal dialysis
CPT/HCPCS: 74176; 80053; 83605; 83690; 84484; 84702; 85025; 93005; 96374; 96375; J2270; J2405; Z7502

== ENCOUNTER 2017-03-03 18:35 | Emergency (ER) | payer OTHER ==
[~2017-03-03] VITALS: Ht 162.6 cm; Wt 88.0 kg
[2017-03-03 18:40] VITALS: Ht 162.6 cm; Wt 88.0 kg
[2017-03-03] MEDS ORDERED: HYDROCODONE/APAP (5/325) TAB PO ONE (20:00)
--- NOTE | 2017-03-03 20:30 | RADRPT ---
PROCEDURE: CT head CLINICAL INDICATION: Trauma with headache TECHNIQUE: Contiguous 2.5 mm axial images were obtained from the vertex to the skull base. No int ravenous contrast was administered. The calculated dose length product (DLP) = 720.23 mGy-cm. The CTDlvol = 43.77 mGy. One or more of the following dose reduction techniques were used: Automated e xposure control, adjustment of the mA and or KV according to patient size, or use of iterative recon struction technique. COMPARISON: 02/23/2015 FINDINGS: There is no evidence of acute intracranial hemorrhage or acute territorial infarct. No mass or mass effect is seen on this noncontrast study. The ventricles and cisterns are normal in size and confi guration. The eisenberg-white matter differentiation is within normal limits. The visualized paranasal sinuses are normally aerated. The bony calvarium is unremarkable IMPRESSION: Unremarkable unenhanced CT of the brain No interval change Right orbital prosthesis RPTAT: HH .Lb Charles MD, MD Date Time Electronically viewed and signed by .Lb Charles MD, on 03/03/2017 20:30 .W/
[2017-03-03] MEDS ORDERED: KETOROLAC 30 MG INJ IV STA (20:56)
[2017-03-03] MEDS ORDERED: DIVA500T7 PO (21:37)
[2017-03-03] MEDS ORDERED: HYDR100T7 PO (21:42)
[2017-03-03] MEDS ORDERED: ALPR2TAB PO (21:43)
[2017-03-03] MEDS ORDERED: INSU100C SQ (21:44)
[2017-03-03] MEDS ORDERED: CHOL400T8 PO (21:45)
[2017-03-03] MEDS ORDERED: ISOS60TA PO (21:46)
[2017-03-03] MEDS ORDERED: FURO40TA4 PO (21:46)
[2017-03-03] MEDS ORDERED: FLUO20CA22 PO (21:47)
[2017-03-03] MEDS ORDERED: PANT40TA4 PO (21:47)
[2017-03-03] MEDS ORDERED: HYDR-906 PO (21:48)
[2017-03-03] MEDS ORDERED: CALC667C PO (21:48)
--- NOTE | 2017-03-03 21:54 | ERD ---
ER Documentation Chief Complaint Date/Time DATE: 03/03/17 TIME: 21:50 Chief Complaint headache sustained after accidentally hit by on her head HPI 31-year-old female comes emergency room because she was at a bus stop she slipped and hit her head. She did not have a headache prior to that. She does get headaches sometimes. She is not any blood thinning medication. She hit the front right forehead. No other pain or injuries. She otherwise feels well. ROS All systems reviewed and are negative except as per history of present illness. Medications Home Meds Reported Medications Calcium Acetate* (Calcium Acetate*) 667 Mg Capsule, 667 MG PO WITH MEALS, #30 CAP 03/03/17 Hydrocodone/Acetaminophen (Blaine 5-325 Tablet) 1 Each Tablet, 1 EACH PO BID, TAB 03/03/17 Fluoxetine Hcl* (Fluoxetine Hcl*) 20 Mg Capsule, 20 MG PO TID, CAP 03/03/17 Pantoprazole* (Pantoprazole*) 40 Mg Tablet.dr, 40 MG PO AC BREAKFAST, TAB 03/03/17 Isosorbide Mononitrate* (Isosorbide Mononitrate*) 60 Mg Tab.er.24h, 60 MG PO DAILY, TAB 03/03/17 Furosemide* (Furosemide*) 40 Mg Tablet, 40 MG PO DAILY, TAB 03/03/17 Cholecalciferol (Vitamin D3) 400 Unit Tablet, 400 UNIT PO DAILY, TAB 03/03/17 Insulin Lispro (Humalog) 100 Unit/1 Ml Cartridge, 100 UNIT SQ SLIDING SCALE 03/03/17 Alprazolam* (Xanax*) 2 Mg Tablet, 2 MG PO QHS Y for ANXIETY, TAB 03/03/17 Hydralazine Hcl* (Hydralazine Hcl*) 100 Mg Tablet, 100 MG PO BID, #90 TAB 03/03/17 Divalproex Sodium* (Depakote ER*) 500 Mg Tabsr, 500 MG PO DAILY, #30 TAB.SA 03/03/17 Ibuprofen* (Motrin*) 800 Mg Tab, 800 MG PO TID Y for PAIN, TAB 12/24/16 Lisinopril* (Lisinopril*) 20 Mg Tablet, 20 MG PO DAILY, #30 TAB 12/24/16 Folic Acid/Vitamin B Comp W-C (TERESITA CAPS SOFTGEL) 1 Mg Capsule, 1 MG PO DAILY, CAP 6/23/17 Amlodipine Besylate* (Norvasc*) 5 Mg Tablet, 5 MG PO DAILY, TAB 12/24/16 Insulin Glargine* (Lantus*) 100 Unit/Ml Soln, 25 UNIT SC QHS, #1 VIAL 12/24/16 Carvedilol* (Carvedilol*) 25 Mg Tablet, 25 MG PO BID, #60 TAB 12/24/16 Folic Acid* (Folic Acid*) 1 Mg Tablet, 1 MG PO DAILY, TAB 04/14/14 Aspirin* (Aspirin* (EC)) 81 Mg Tablet.dr, 81 MG PO DAILY, TAB 04/05/14 Atorvastatin* (Atorvastatin*) 40 Mg Tablet, 40 MG PO HS, TAB 01/11/14 Discontinued Reported Medications Divalproex Sodium* (Divalproex ER*) 500 Mg Tab.er.24h, 500 MG PO QHS, #30 TAB.SA 12/24/16 Hydralazine Hcl* (Hydralazine Hcl*) 25 Mg Tab, 25 MG PO BID Y for ELEVATED BLOOD PRESSURE, #60 TAB 12/24/16 Fluoxetine Hcl* (Prozac*) 20 Mg Capsule, 20 MG PO DAILY, CAP 01/11/14 Discontinued Scripts Ondansetron Hcl* (Zofran*) 4 Mg Tablet, 4 MG PO Q6H for NAUSEA AND/OR VOMITING, #10 TAB Prov:MÓNICA JARA DO 12/29/16 Acetaminophen* (Tylenol*) 325 Mg Tablet, 2 TAB PO Q6 Y for PAIN AND OR ELEVATED TEMP, #20 TAB Prov:REBEKA PAYNE MD 12/24/16 Allergies Allergies: Coded Allergies: No Known Allergy (Unverified , 03/03/17) PMhx/Soc History of Surgery: Yes (EYE DIALYSIS SHUNT SX, PERMA CATH PLACEMENT ) Anesthesia Reaction: No Hx Neurological Disorder: Yes (BLIND EYES ) Hx Respiratory Disorders: No Hx Cardiac Disorders: Yes (HTN ) Hx Psychiatric Problems: Yes (EPILePSY , DEPRESSION ) Hx Miscellaneous Medical Probl: Yes (PERMACATH RIGHT UPPER CHEST , AV SHUNT LEFT ARM, DIALYSIS) Hx Alcohol Use: No Hx Substance Use: No Hx Tobacco Use: No Smoking Status: Never smoker Physical Exam Vitals Vital Signs Date Time Temp Pulse Resp B/P Pulse Ox O2 Delivery O2 Flow Rate FiO2 03/03/17 19:26 82 16 168/83 97 Room Air 03/03/17 18:40 99.4 83 20 203/96 99 Physical Exam Const: [] No distress Head: Atraumatic Eyes: Normal Conjunctiva, EOMI, PERRLA ENT: Normal External Ears, Nose and Mouth. Neck: Full range of motion..~ No meningismus. Resp: Clear to auscultation bilaterally Cardio: Regular rate and rhythm, no murmurs Ext: No cyanosis, or edema Neur: Awake and alertAnd oriented 3, cranial nerves II through XII intact, no cerebellar deficits, normal gait. Psych: Normal Mood and Affect Results 24 hrs Current Medications Medications (Trade) Dose Ordered Sig/Elba Route PRN Reason Start Time Stop Time Status Last Admin Dose Admin Acetaminophen/ Hydrocodone Bitart (Blaine (5/325)) 1 tab ONCE ONCE PO 03/03/17 20:00 03/03/17 20:01 DC 03/03/17 19:54 Ketorolac Tromethamine (Toradol) 30 mg ONCE STAT IV 03/03/17 20:56 03/03/17 21:40 DC 03/03/17 21:43 Procedures/MDM Headache after hitting head at bus stop. Normal neurological exam. No visible injuries. Negative head CT. Patient has stable vital signs. I will discharge her with naproxen for the headaches and return precautions the ER for any neurological deficits, nausea vomiting or any signs of increased intracranial pressure which have explained. Primary care follow-up in [address] head interpretation: I see no acute process, see no hemorrhage, no mass- effect, no midline shift, no skull fractures. Departure Diagnosis: Primary Impression: Headache Additional Impression: Head injury Condition: Stable KRAIG BEAULIEU DO Mar 03, 2017 21:54
[2017-03-03] MEDS ORDERED: NAPR-688 PO (21:56)
[2017-03-03 22:21] VITALS: BP 166/79; PULSE 82; RESP 19
== END 2017-03-03 22:24 | disposition home or self-care (01) ==
LOC: E/R 18:35
DX: S09.90XA Unspecified injury of head, initial encounter (principal); E11.9 Type 2 diabetes mellitus without complications; N18.6 End stage renal disease; I12.0 Hypertensive chronic kidney disease with stage 5 chronic kidney disease or end stage renal disease; R51 Headache; W51.XXXA Accidental striking against or bumped into by another person, initial encounter; Y92.521 Bus station as the place of occurrence of the external cause; Z79.4 Long term (current) use of insulin; Z79.82 Long term (current) use of aspirin; Z99.2 Dependence on renal dialysis
CPT/HCPCS: 70450; 96374; J1885; Z7502; Z7610

== ENCOUNTER 2017-05-10 05:24 | Day surgery (SDC) | END 2017-05-10 13:00 | disposition home or self-care (01) | DX: N18.6 End stage renal disease (principal); E11.22 Type 2 diabetes mellitus with diabetic chronic kidney disease; I12.0 Hypertensive chronic kidney disease with stage 5 chronic kidney disease or end stage renal disease | CPT/HCPCS: 36819; 71010; 82962; 84132; 84703; 93005; J1644; J2250; J2795; J3010; Z7512; Z7610 ==

== ENCOUNTER 2017-08-24 14:22 | Emergency (ER) | END 2017-08-24 20:00 | disposition left against medical advice (07) ==

== ENCOUNTER 2017-10-27 20:07 | Emergency (ER) | END 2017-10-27 20:59 | disposition home or self-care (01) ==

== ENCOUNTER 2017-12-18 22:39 | Inpatient (IN) | END 2017-12-20 14:02 | disposition home or self-care (01) | DRG 640 ==

== ENCOUNTER → 2018-01-11 | Emergency (ER) | END | disposition left against medical advice (07) ==

== ENCOUNTER 2018-02-07 12:55 | Emergency (ER) | END 2018-02-07 15:50 | disposition home or self-care (01) ==

== ENCOUNTER 2018-02-17 11:16 | Inpatient (IN) | END 2018-02-18 16:55 | disposition home or self-care (01) | DRG 939 ==

== ENCOUNTER 2018-05-23 00:10 | Inpatient (IN) | END 2018-05-24 13:30 | disposition home or self-care (01) | DRG 391 ==

== ENCOUNTER 2018-09-18 00:33 | Emergency (ER) | payer OTHER ==
[~2018-09-18] VITALS: Ht 170.2 cm; Wt 95.0 kg
[~2018-09-18 00:33] MED LIST changes: -ACET325T33 PO; +ACET325T45 PO; -ASPI-664 PO; -ATOR40TA68 PO; +CALC667C PO; -CARV25TA79 PO; +CLON0.1T14 PO; -DIVA500T15 PO; -FOLI1CAP8 PO; -HYDR-3671 PO; +HYDR-4011 PO; +HYDR100T25 PO; -IBUP800T25 PO; -LANT3I SC; +LEVEM; +LEVO250T9 PO; -LISI20TA11 PO; +MECL-77 PO; +METO-448 PO; +MULTI PO; +NOVO3I SC; +ONDA4SOL2 IV; -ONDA4TAB8 PO; +SENN-36 PO
[2018-09-18 00:47] VITALS: Ht 170.2 cm; Wt 95.0 kg
[2018-09-18] MEDS ORDERED: SOD CHLORIDE 0.9% 950 ML IV ONE (01:00)
[2018-09-18] MEDS ORDERED: ACETAMINOPHEN 500 MG TAB PO STA (02:29)
[2018-09-18] MEDS ORDERED: ACETAMINOPHEN 500 MG TAB ONE (02:31)
[2018-09-18] MEDS ORDERED: INSULIN LISPRO 100 UNIT/ML VIAL SC STA (02:57)
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
[2018-09-18] MEDS ORDERED: INSULIN REGULAR 10 ML INJ IV STA (05:04)
[2018-09-18] MEDS ORDERED: LORAZEPAM 2 MG INJ IV ONE (05:30)
[2018-09-18] MEDS ORDERED: HALOPERIDOL 5 MG INJ ONE (06:00)
[2018-09-18] MEDS ORDERED: DIPHENHYDRAMINE 50 MG INJ ONE (06:00)
[2018-09-18] MEDS ORDERED: DIPHENHYDRAMINE 50 MG INJ IV ONE (06:00)
[2018-09-18] MEDS ORDERED: HALOPERIDOL 5 MG INJ IV ONE (06:00)
[2018-09-18] MEDS ORDERED: hydrALAzine 20 MG INJ IV ONE (06:30)
[2018-09-18] MEDS ORDERED: HYDROmorphONE 1 MG/ML SYG IV STA (06:33)
[2018-09-18] MEDS ORDERED: ONDANSETRON 4 MG INJ IV STA (06:33)
[2018-09-18 08:28] VITALS: BP 166/87; PULSE 78; RESP 17
== END 2018-09-18 08:44 | disposition short-term general hospital (02) ==
LOC: E/R 00:33
DX: E10.65 Type 1 diabetes mellitus with hyperglycemia (principal); I10 Essential (primary) hypertension; Z79.4 Long term (current) use of insulin
CPT/HCPCS: 36415; 71045; 80048; 82803; 82947; 82962; 83735; 84100; 84484; 85025; 93005; 96372; 96374; 96375; J0360; J1170; J1200; J1630; J1815; J2060; J7030; Z7502; Z7610

== ENCOUNTER 2018-12-20 10:37 | Inpatient (IN) | payer OTHER ==
[~2018-12-20] VITALS: Ht 170.2 cm; Wt 96.2 kg
[2018-12-20] VITALS (30 sets, daily range): BP systolic 105–243; BP diastolic 68–115; PULSE 57–75; RESP 8–23; Ht 170.2 cm; Wt 96.2 kg
[2018-12-20] MEDS ORDERED: SOD CHLORIDE 0.9% 500 ML IV STA (10:50)
[2018-12-20] MEDS ORDERED: ONDANSETRON 4 MG INJ IV STA (10:50)
[2018-12-20] MEDS ORDERED: morphine 4 MG/ML VIAL IV STA (10:52)
[2018-12-20] MEDS ORDERED: NITROGLYCERIN 50 MG/D5W (PMX) 250 ML IV STA (11:06)
[2018-12-20] MEDS ORDERED: HYDR100T25 PO (11:56)
[2018-12-20] MEDS ORDERED: ISOS60TA PO (11:57)
[2018-12-20] MEDS ORDERED: CHOL400T10 PO (11:57)
[2018-12-20] MEDS ORDERED: ATOR20TA38 PO (11:58)
[2018-12-20] MEDS ORDERED: OXYC30TA PO (11:59)
[2018-12-20] MEDS ORDERED: INSU100C SQ (12:04)
[2018-12-20] MEDS ORDERED: LANT3I SC (12:05)
[2018-12-20] MEDS ORDERED: ASPI-817 PO (12:06)
[2018-12-20] MEDS ORDERED: LISI-471 PO (12:06)
[2018-12-20] MEDS ORDERED: CARV25TA79 PO (12:09)
[2018-12-20] MEDS ORDERED: AMLO5TAB4 PO (12:09)
[2018-12-20] MEDS ORDERED: CALC667C PO (12:24)
[2018-12-20] MEDS ORDERED: IMAT400T19 PO (12:43)
[2018-12-20] MEDS ORDERED: INSULIN LISPRO 100 UNIT/ML VIAL SC ONE (13:00)
[2018-12-20] MEDS ORDERED: ACCU-CHEK XX ONE (13:00)
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
[2018-12-20] MEDS ORDERED: SODIUM POLYSTYRENE 15 GM KIT (POWDER + SORBITOL) PO ONE (14:00)
[2018-12-20] MEDS ORDERED: CALCIUM GLUCONATE 10% 1 GM in DEXTROSE 5% 100 ML IVPB ONE (14:00)
--- NOTE | 2018-12-20 14:02 | QN ---
Documentation Comment pt seen and examined BRYANT YOO MD Dec 20, 2018 14:02
[2018-12-20] MEDS ORDERED: AMLODIPINE 5 MG TAB PO SCH (14:30)
[2018-12-20] MEDS ORDERED: DEXTROSE 50% 50 ML SYRINGE IV PRN ×4 (16:00→18:30)
[2018-12-20] MEDS ORDERED: GLUCAGON 1 MG INJ IM PRN (16:00)
[2018-12-20] MEDS ORDERED: GLUCOSE GEL 15 GRAM TUBE BUCCAL PRN (16:00)
[2018-12-20] MEDS ORDERED: GLUCOSE GEL 15 GRAM TUBE PO PRN ×2 (16:00)
[2018-12-20] MEDS: HYDROCODONE/APAP (5/325) TAB PO PRN ×2 (16:00→21:13)
[2018-12-20] MEDS ORDERED: INSULIN ASPART [NOVOLOG] 3 ML PEN SC SCH (17:35)
[2018-12-20] MEDS ORDERED: NITROGLYCERIN 50 MG/D5W (PMX) 250 ML IV SCH ×3 (18:00→18:30)
[2018-12-20] MEDS: ACCU-CHEK XX SCH ×6 (18:30→23:30)
[2018-12-20] MEDS ORDERED: niCARdipine-NS 0.1MG/ML DRIP 200 ML IV SCH (18:30)
[2018-12-20] MEDS ORDERED: INSULIN HUMAN REGULAR 100 UNIT in SOD CHLORIDE 0.9% 99 ML IV SCH (18:30)
[2018-12-20] MEDS: niCARdipine 25 MG in SOD CHLORIDE 0.9% 240 ML IV SCH ×3 (19:03→23:55)
[2018-12-20] MEDS: DIPHENHYDRAMINE 50 MG CAP PO PRN (21:13)
[2018-12-20] MEDS: ATORVASTATIN 20 MG TAB PO SCH (23:31)
[2018-12-21] VITALS (89 sets, daily range): BP systolic 130–222; BP diastolic 65–155; PULSE 57–77; RESP 7–23
[2018-12-21] MEDS: ACCU-CHEK XX SCH ×23 (00:30→23:15)
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
[2018-12-21] MEDS: niCARdipine 25 MG in SOD CHLORIDE 0.9% 240 ML IV SCH ×4 (01:49→07:23)
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
[2018-12-21] MEDS: ISOSORBIDE MONONITRATE(SR)60 MG TAB PO SCH (08:35)
[2018-12-21] MEDS: HYDROCODONE/APAP (5/325) TAB PO PRN ×2 (09:01→23:24)
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
[2018-12-21] MEDS ORDERED: niCARdipine 50 MG in SOD CHLORIDE 0.9% 480 ML IV SCH (10:30)
--- NOTE | 2018-12-21 10:51 | PN ---
Date/Time of Note Date/Time of Note DATE: 12/21/18 TIME: 10:48 Subjective Complains of right shoulder pain. No chest pain or shortness of breath. Objective Vitals Vital Signs Date Temp Pulse Resp B/P (MAP) Pulse Ox O2 O2 Flow FiO2 Time Delivery Rate 12/21/18 67 15 130/116 99 10:00 (121) 12/21/18 97.6 Room Air 08:00 12/20/18 2.0 23:00 Intake and Output 12/20/18 12/20/18 12/21/18 1515:00 23:00 07:00 IntakeIntake Total 330.5 ml 928 ml OutputOutput Total 3400 ml 0 ml BalanceBalance -3069.5 ml 928 ml Lungs clear to auscultation bilaterally Regular rate and rhythm no murmurs or gallops Soft nontender nondistended normoactive bowel sounds Right shoulder with fair range of motion. No lower extremity edema Nonfocal Results Result Diagram: 12/21/18 0507 12/21/18 0507 Medications Medications Current Medications Atorvastatin Calcium (Lipitor) 20 mg QHS PO Last administered on 12/20/18at 23:31; Admin Dose 20 MG; Start 12/20/18 at 21:00 Carvedilol (Coreg) 25 mg BID PO Last administered on 12/21/18at 08:36; Admin Dose 25 MG; Start 12/20/18 at 14:30 Hydralazine HCl (Apresoline) 100 mg TID PO Last administered on 12/21/18at 08:36; Admin Dose 100 MG; Start 12/20/18 at 21:00 Isosorbide Mononitrate (Imdur) 60 mg DAILY PO Last administered on 12/21/18at 08:35; Admin Dose 60 MG; Start 12/21/18 at 09:00 Acetaminophen/ Hydrocodone Bitart ([place] (5/325)) 1 tab Q4 PRN PO mod pain Last administered on 12/20/18at 16:00; Admin Dose 1 TAB; Start 12/20/18 at 15:30 Miscellaneous Information 1 ea NOTE XX ; Start 12/20/18 at 16:00 Glucose (Glutose) 15 gm Q15M PRN PO DECREASED GLUCOSE; Start 12/20/18 at 16:00 Glucose (Glutose) 22.5 gm Q15M PRN PO DECREASED GLUCOSE; Start 12/20/18 at 16:00 Dextrose (D50w Syringe) 25 ml Q15M PRN IV DECREASED GLUCOSE; Start 12/20/18 at 16:00 Dextrose (D50w Syringe) 50 ml Q15M PRN IV DECREASED GLUCOSE; Start 12/20/18 at 16:00 Glucagon (Glucagen) 1 mg Q15M PRN IM DECREASED GLUCOSE; Start 12/20/18 at 16:00 Glucose (Glutose) 15 gm Q15M PRN BUCCAL DECREASED GLUCOSE; Start 12/20/18 at 16:00 Diagnostic Test (Pha) (Accu-Chek) 1 ea Q1H XX Last administered on 12/21/18at 09:30; Admin Dose 1 EA; Start 12/20/18 at 18:30 Insulin Human Regular 100 unit/ Sodium Chloride 100 ml @ 0 mls/hr PER PROTOCOL IV Last administered on 12/20/18at 18:58; Admin Dose 6 MLS/HR; Start 12/20/18 at 18:30 Miscellaneous Information (* Miscellaneous Pharmacy Order) Treatment of Hypoglycemia: 1.BG 51... Per protocol XX ; Start 12/20/18 at 18:30 Dextrose (D50w Syringe) 25 ml Q15M PRN IV .DECREASED GLUCOSE; Start 12/20/18 at 18:30 Dextrose (D50w Syringe) 50 ml Q15M PRN IV .DECREASED GLUCOSE; Start 12/20/18 at 18:30 Diphenhydramine HCl (Benadryl) 50 mg Q6H PRN PO ITCHING Last administered on 12/20/18at 21:13; Admin Dose 50 MG; Start 12/20/18 at 21:00 Acetaminophen/ Hydrocodone Bitart ([place] (5/325)) 2 tab Q6H PRN PO MODERATE PAIN LEVEL 4-6 Last administered on 12/21/18at 09:01; Admin Dose 2 TAB; Start 12/20/18 at 21:00 Nicardipine HCl 50 mg/Sodium Chloride 500 ml @ 50 mls/hr TITRATE IV ; Start 12/21/18 at 10:30 Amlodipine Besylate (Norvasc) 10 mg DAILY PO ; Start 12/22/18 at 09:00 Lisinopril (Zestril) 40 mg DAILY PO ; Start 12/21/18 at 10:30 VTE Prophylaxis Risk score (from Nsg)>0 risk: 4 SCD applied (from Ns): Yes Lines/Catheters IV Catheter Type: Saline Lock To in Place: No Assessment/Plan Assessment/Plan 33-year-old female with hypertensive urgency, resolved Fluid overload, resolved End-stage renal disease, on hemodialysis 4 days a week Legally blind due to diabetic retinopathy Poorly controlled diabetes mellitus Seizure disorder Transfer to telemetry Repeat hemodialysis today Increase Norvasc to 10 mg daily Lisinopril 40 mg daily Wean off Cardene drip Nephrology follow-up I had a long conversation with the patient regarding fluid restriction and compliance with medical therapy ROSANNE RICARDO MD Dec 21, 2018 10:51
[2018-12-21] MEDS: LISINOPRIL 20 MG TAB PO SCH ×2 (11:33→17:31)
[2018-12-21] MEDS ORDERED: HYDR-3601 PO (11:34)
[2018-12-21] MEDS ORDERED: AMLO-147 PO (11:34)
[2018-12-21] MEDS ORDERED: LISI-471 PO (11:34)
--- NOTE | 2018-12-21 11:36 | PDOCDIS ---
Discharge Instructions CONDITION [id number] Patient Condition: [id number] Good HOME CARE INSTRUCTIONS: [id number] Diet Instructions: Jndie2q is: [id number] fluid restriction 1200 cc per day ACTIVITY: [id number] Activity Restrictions: [id number] Slowly Increase Activity FOLLOW UP/APPOINTMENTS Follow-up Plan pcp 1 week endocrinology ROSANNE MARCUM MD Dec 21, 2018 11:36
[2018-12-21] MEDS: ATORVASTATIN 20 MG TAB PO SCH (20:44)
[2018-12-21] MEDS: hydrALAzine 20 MG INJ IV PRN (23:16)
[2018-12-22] VITALS (83 sets, daily range): BP systolic 127–187; BP diastolic 61–100; PULSE 70–78; RESP 12–29
[2018-12-22] MEDS: ACCU-CHEK XX SCH ×21 (00:30→20:23)
[2018-12-22] MEDS: DIPHENHYDRAMINE 50 MG CAP PO PRN (03:01)
[2018-12-22] MEDS: ISOSORBIDE MONONITRATE(SR)60 MG TAB PO SCH (08:03)
[2018-12-22] MEDS: LISINOPRIL 20 MG TAB PO SCH (08:04)
[2018-12-22] MEDS: AMLODIPINE 10 MG TAB PO SCH (08:23)
[2018-12-22] MEDS ORDERED: CLON0.2T5 PO (09:17)
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
--- NOTE | 2018-12-22 12:14 | PN ---
Date/Time of Note Date/Time of Note DATE: 12/22/18 TIME: 12:11 Subjective Patient is sleepy but arousable. Denies any complaints Objective Vitals Vital Signs Date Temp Pulse Resp B/P (MAP) Pulse Ox O2 O2 Flow FiO2 Time Delivery Rate 12/22/18 74 14 95 11:15 12/22/18 165/81 11:00 (109) 12/22/18 98.4 Nasal 2.0 08:00 Cannula Intake and Output 12/21/18 12/21/18 12/22/18 1515:00 23:00 07:00 IntakeIntake Total 113.2 ml 127.0 ml 111.0 ml OutputOutput Total 3000 ml BalanceBalance 113.2 ml -2873.0 ml 111.0 ml Clear to auscultation bilaterally Regular rate and rhythm Soft nontender nondistended normoactive bowel sounds No edema Nonfocal Results Result Diagram: 12/22/18 0831 12/22/18 0743 Medications Medications Current Medications Atorvastatin Calcium (Lipitor) 20 mg QHS PO Last administered on 12/21/18at 20:44; Admin Dose 20 MG; Start 12/20/18 at 21:00 Carvedilol (Coreg) 25 mg BID PO Last administered on 12/22/18at 08:03; Admin Dose 25 MG; Start 12/20/18 at 14:30 Hydralazine HCl (Apresoline) 100 mg TID PO Last administered on 12/22/18at 08:23; Admin Dose 100 MG; Start 12/20/18 at 21:00 Isosorbide Mononitrate (Imdur) 60 mg DAILY PO Last administered on 12/22/18at 08:03; Admin Dose 60 MG; Start 12/21/18 at 09:00 Acetaminophen/ Hydrocodone Bitart ([place] (5/325)) 1 tab Q4 PRN PO mod pain Last administered on 12/21/18at 23:24; Admin Dose 1 TAB; Start 12/20/18 at 15:30 Miscellaneous Information 1 ea NOTE XX ; Start 12/20/18 at 16:00 Glucose (Glutose) 15 gm Q15M PRN PO DECREASED GLUCOSE; Start 12/20/18 at 16:00 Glucose (Glutose) 22.5 gm Q15M PRN PO DECREASED GLUCOSE; Start 12/20/18 at 16:00 Dextrose (D50w Syringe) 25 ml Q15M PRN IV DECREASED GLUCOSE; Start 12/20/18 at 16:00 Dextrose (D50w Syringe) 50 ml Q15M PRN IV DECREASED GLUCOSE; Start 12/20/18 at 16:00 Glucagon (Glucagen) 1 mg Q15M PRN IM DECREASED GLUCOSE; Start 12/20/18 at 16:00 Glucose (Glutose) 15 gm Q15M PRN BUCCAL DECREASED GLUCOSE; Start 12/20/18 at 16:00 Diagnostic Test (Pha) (Accu-Chek) 1 ea Q1H XX Last administered on 12/22/18 09:30; Admin Dose 1 EA; Start 12/20/18 at 18:30 Insulin Human Regular 100 unit/ Sodium Chloride 100 ml @ 0 mls/hr PER PROTOCOL IV Last administered on 12/20/18at 18:58; Admin Dose 6 MLS/HR; Start 12/20/18 at 18:30 Miscellaneous Information (* Miscellaneous Pharmacy Order) Treatment of Hypoglycemia: 1.BG 51... Per protocol XX ; Start 12/20/18 at 18:30 Dextrose (D50w Syringe) 25 ml Q15M PRN IV .DECREASED GLUCOSE; Start 12/20/18 at 18:30 Dextrose (D50w Syringe) 50 ml Q15M PRN IV .DECREASED GLUCOSE; Start 12/20/18 at 18:30 Diphenhydramine HCl (Benadryl) 50 mg Q6H PRN PO ITCHING Last administered on 12/22/18at 03:01; Admin Dose 50 MG; Start 12/20/18 at 21:00 Acetaminophen/ Hydrocodone Bitart ([place] (5/325)) 2 tab Q6H PRN PO MODERATE PAIN LEVEL 4-6 Last administered on 12/21/18 09:01; Admin Dose 2 TAB; Start 12/20/18 at 21:00 Nicardipine HCl 50 mg/Sodium Chloride 500 ml @ 50 mls/hr TITRATE IV Last administered on 12/21/18at 13:42; Admin Dose 130 MLS/HR; Start 12/21/18 at 10:30 Amlodipine Besylate (Norvasc) 10 mg DAILY PO Last administered on 12/22/18at 08:23; Admin Dose 10 MG; Start 12/22/18 at 09:00 Lisinopril (Zestril) 40 mg DAILY PO Last administered on 12/22/18at 08:04; Admin Dose 40 MG; Start 12/21/18 at 10:30 Hydralazine HCl (Apresoline) 20 mg Q6H PRN IV ELEVATED SYSTOLIC BP Last administered on 12/21/18at 23:16; Admin Dose 20 MG; Start 12/21/18 at 23:00 Clonidine (Catapres) 0.2 mg TID PO ; Start 12/22/18 at 13:00 Insulin Glargine (Lantus) 29 units DAILY@0800 SC ; Start 12/23/18 at 08:00 VTE Prophylaxis Risk score (from Ns)>0 risk: 1 SCD applied (from Ns): Yes Lines/Catheters IV Catheter Type: Saline Lock To in Place: No Assessment/Plan Assessment/Plan 33-year-old female with hypertensive urgency, resolved Fluid overload, resolved End-stage renal disease, on hemodialysis every Tuesday and Tuesday Poorly controlled type 2 diabetes mellitus Diabetic retinopathy Legally blind Anemia of chronic disease Right shoulder pain Proceed with hemodialysis Start Lantus insulin Wean off insulin drip Add clonidine 0.2 mg 3 times daily Discharge planning today if blood pressure is stable Operations Officer was notified regarding the plan ROSANNE RICARDO MD Dec 22, 2018 12:14
[2018-12-22] MEDS ORDERED: CLON0.2T12 PO (12:15)
[2018-12-22] MEDS ORDERED: CALC667C PO (12:15)
[2018-12-22] MEDS ORDERED: Insulin Glargine SC (12:15)
[2018-12-22] MEDS: INSULIN GLARGINE [LANTus] (100 UNITS/ML) SYG SC SCH (16:23)
[2018-12-22] MEDS: CALCIUM ACETATE 667 MG CAP PO SCH ×2 (20:20→20:25)
[2018-12-22] MEDS: INSULIN ASPART [NOVOLOG] 3 ML PEN SC SCH (20:23)
[2018-12-22] MEDS: ATORVASTATIN 20 MG TAB PO SCH (20:30)
[2018-12-23] VITALS (20 sets, daily range): BP systolic 128–180; BP diastolic 60–90; PULSE 65–71; RESP 17–19
[2018-12-23] MEDS ORDERED: ACCU-CHEK XX SCH (01:00)
[2018-12-23] MEDS: ACCU-CHEK XX SCH ×4 (03:00→17:29)
[2018-12-23] MEDS: INSULIN ASPART [NOVOLOG] 3 ML PEN SC SCH ×4 (07:55→21:00)
[2018-12-23] MEDS ORDERED: INSULIN GLARGINE [LANTus] (100 UNITS/ML) SYG SC SCH (08:00)
[2018-12-23] MEDS: CALCIUM ACETATE 667 MG CAP PO SCH ×3 (08:30→17:23)
[2018-12-23] MEDS: INSULIN GLARGINE [LANTus] (100 UNITS/ML) SYG SC SCH (08:51)
[2018-12-23] MEDS: ISOSORBIDE MONONITRATE(SR)60 MG TAB PO SCH (09:00)
[2018-12-23] MEDS: AMLODIPINE 10 MG TAB PO SCH (09:00)
[2018-12-23] MEDS ORDERED: ESCITALOPRAM 10 MG TAB PO SCH (09:00)
[2018-12-23] MEDS: LISINOPRIL 20 MG TAB PO SCH (09:00)
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
[2018-12-23] MEDS: BUSPIRONE 5 MG TAB PO SCH ×2 (09:50→21:36)
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
[2018-12-23] MEDS ORDERED: ESCI10TA48 PO (13:15)
[2018-12-23] MEDS ORDERED: BUSP5TAB2 PO (13:15)
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
[2018-12-23] MEDS: ATORVASTATIN 20 MG TAB PO SCH (21:36)
[2018-12-24] VITALS (7 sets, daily range): BP systolic 158–192; BP diastolic 70–89; PULSE 65–78; RESP 20
[2018-12-24] MEDS: ACCU-CHEK XX SCH ×2 (00:19→06:10)
[2018-12-24] MEDS: hydrALAzine 20 MG INJ IV PRN (01:22)
[2018-12-24] MEDS: HYDROCODONE/APAP (5/325) TAB PO PRN (05:09)
== END 2018-12-24 06:50 | disposition home or self-care (01) | DRG 682 ==
LOC: E/R 10:37 → ICU 12:53 → TEL 12-22 23:44
PROVIDERS: ADMIT Internal Medicine; ATTEND Internal Medicine
PROC: 5A1D70Z Performance of Urinary Filtration, Intermittent, Less than 6 Hours Per Day (ICD-10-PCS; 2018-12-20)
PROC: 5A1D70Z Performance of Urinary Filtration, Intermittent, Less than 6 Hours Per Day (ICD-10-PCS; 2018-12-21)
PROC: 5A1D70Z Performance of Urinary Filtration, Intermittent, Less than 6 Hours Per Day (ICD-10-PCS; principal; 2018-12-23)
DX: I12.0 Hypertensive chronic kidney disease with stage 5 chronic kidney disease or end stage renal disease (principal); N18.6 End stage renal disease; J81.0 Acute pulmonary edema; I16.1 Hypertensive emergency; Z99.2 Dependence on renal dialysis; E87.5 Hyperkalemia; E87.70 Fluid overload, unspecified; E11.22 Type 2 diabetes mellitus with diabetic chronic kidney disease; E11.65 Type 2 diabetes mellitus with hyperglycemia; E11.319 Type 2 diabetes mellitus with unspecified diabetic retinopathy without macular edema; I16.0 Hypertensive urgency; H54.7 Unspecified visual loss; G40.909 Epilepsy, unspecified, not intractable, without status epilepticus; S40.011A Contusion of right shoulder, initial encounter; Y04.2XXA Assault by strike against or bumped into by another person, initial encounter; Y93.89 Activity, other specified; Y92.89 Other specified places as the place of occurrence of the external cause; Y99.8 Other external cause status; Z79.4 Long term (current) use of insulin; Z91.14 Patient's other noncompliance with medication regimen
CPT/HCPCS: 36415; 70450; 71045; 80048; 82803; 82962; 83735; 84100; 84484; 85025; 85610; 85730; 87081; 87340; 90935; 93005; 96374; 96375; J0360; J0610; J1815; J2270; J2405; J7040; J7050

== ENCOUNTER 2019-02-14 02:21 | Inpatient (IN) | payer OTHER ==
[~2019-02-14] VITALS: Ht 170.2 cm; Wt 92.5 kg
[2019-02-14] VITALS (29 sets, daily range): BP systolic 114–173; BP diastolic 60–99; PULSE 62–74; RESP 7–27; Ht 170.2 cm; Wt 92.5 kg
[~2019-02-14 02:21] MED LIST changes: -ACET325T45 PO; +ACET500C5 PO; +AMLO-147 PO; -AMLO5TAB4 PO; +ASPI-817 PO; +ATOR20TA38 PO; +BUSP5TAB2 PO; +CARV25TA79 PO; +CHOL400T10 PO; -CLON0.1T14 PO; +CLON0.2T12 PO; +CLON0.2T5 PO; +ESCI10TA48 PO; -FLUO20CA38 PO; -FOLI-49 PO; +HYDR-3601 PO; -HYDR-4011 PO; +IMAT400T19 PO; +INSU100C SQ; +ISOS60TA PO; +Insulin Glargine SC; +LANT3I SC; -LEVEM; -LEVO250T9 PO; +LISI-471 PO; -MECL-77 PO; -METO-448 PO; -MULTI PO; -ONDA4SOL2 IV; +OXYC30TA PO; -SENN-36 PO
[2019-02-14] MEDS ORDERED: hydrALAzine 20 MG INJ IV ONE ×2 (04:30→06:00)
--- NOTE | 2019-02-14 05:53 | ERD ---
ER Documentation Chief Complaint Chief Complaint R81. SOB X 3-4 HRS. DIALYSIS PT. HPI This is a 33-year-old female coming with shortness breath 3 to 4 hours. Patient has has a history of end-stage renal disease on dialysis. Patient states she states she is been compliant with her dialysis. Denies she became acutely short of breath and called rescue. Denies nausea vomiting fevers chills or chest pain. Denies any other current complaints. ROS All systems reviewed and are negative except as per history of present illness. Medications Home Meds Active Scripts Escitalopram Oxalate* (Escitalopram Oxalate*) 10 Mg Tablet, 5 MG PO DAILY for 30 Days, #30 TAB Prov:JAM MARTIN M.D. 12/23/18 Buspirone Hcl* (Buspirone Hcl*) 5 Mg Tab, 5 MG PO BID for 30 Days, #60 TAB Prov:AJM MARTIN M.D. 12/23/18 [Insulin Glargine] 100 UNITS/ML SOLN No Conflict Check, 29 UNITS SC DAILY@0800 for 30 Days Prov:ROSANNE RICARDO MD 12/22/18 Calcium Acetate* (Calcium Acetate*) 667 Mg Capsule, 667 MG PO WITH MEALS for 30 Days, CAP Prov:ROSANNE RCIARDO MD 12/22/18 Clonidine Hcl* (Catapres*) 0.2 Mg Tablet, 0.2 MG PO TID for 30 Days, TAB Prov:ROSANNE RICARDO MD 12/22/18 Clonidine Hcl* (Clonidine Hcl*) 0.2 Mg Tablet, 0.2 MG PO Q8, #90 TAB Prov:ROSANNE RICARDO MD 12/22/18 Hydrocodone Bit-Acetaminophen (Hydrocodone Bit-APAP) 5-325MG Tablet, 1 TAB PO Q4 PRN for mod pain for 10 Days, TAB Prov:ROSANNE RICARDO MD 12/21/18 Lisinopril* (Lisinopril*) 20 Mg Tablet, 40 MG PO DAILY for 30 Days, TAB Prov:ROSANNE RICARDO MD 12/21/18 Amlodipine Besylate* (Amlodipine Besylate*) 10 Mg Tablet, 10 MG PO DAILY for 30 Days, TAB 3 Refills Prov:ROSANNE RICARDO MD 12/21/18 Reported Medications Imatinib Mesylate* (Gleevec*) 400 Mg Tablet, 400 MG PO DAILY, TAB 12/20/18 Calcium Acetate* (Calcium Acetate*) 667 Mg Capsule, 2001 MG PO WITH MEALS, #90 CAP 12/20/18 Carvedilol* (Carvedilol*) 25 Mg Tablet, 25 MG PO BID, #60 TAB 12/20/18 Aspirin* (Aspirin* EC) 81 Mg Tablet.dr, 81 MG PO DAILY, TAB 12/20/18 Lisinopril* (Lisinopril*) 20 Mg Tablet, 20 MG PO DAILY, #30 TAB 12/20/18 Insulin Glargine* (Lantus*) 100 Unit/Ml Soln, 25 UNIT SC QHS, #1 VIAL 12/20/18 Insulin Lispro (Humalog) 100 Unit/1 Ml Cartridge, 0 SQ SLIDING SCALE, EA 12/20/18 Oxycodone Hcl* (IR) (Oxycodone Hcl*) 30 Mg Tablet, 30 MG PO Q12H PRN for PAIN, TAB 12/20/18 Atorvastatin Calcium* (Atorvastatin Calcium*) 20 Mg Tablet, 20 MG PO QHS, #30 TAB 12/20/18 Cholecalciferol* (Vitamin D*) 400 Unit Tablet, 400 UNIT PO DAILY, TAB 12/20/18 Isosorbide Mononitrate* (Isosorbide Mononitrate*) 60 Mg Tab.er.24h, 60 MG PO DAILY, TAB 12/20/18 Hydralazine Hcl* (Hydralazine Hcl*) 100 Mg Tablet, 100 MG PO TID, #90 TAB 12/20/18 Allergies Allergies: Coded Allergies: No Known Allergy (Unverified , 12/20/18) PMhx/Soc History of Surgery: Yes Anesthesia Reaction: No Hx Neurological Disorder: No Hx Respiratory Disorders: No Hx Cardiac Disorders: Yes (HTN, HLD ) Hx Psychiatric Problems: Yes (anxiety, depression ) Hx Miscellaneous Medical Probl: Yes (DB RETINOPATHY/BLIND, NON-COMPLIANCE) Hx Alcohol Use: Yes (4 years ago ) Hx Substance Use: No Hx Tobacco Use: No Smoking Status: Never smoker Physical Exam Vitals Vital Signs Date Temp Pulse Resp B/P (MAP) Pulse Ox O2 O2 Flow FiO2 Time Delivery Rate 02/14/19 100 35 04:37 02/14/19 95 35 02:35 02/14/19 98.4 77 19 198/95 98 02:23 (129) Physical Exam Const: No acute distress Head: Atraumatic Eyes: Normal Conjunctiva ENT: Normal External Ears, Nose and Mouth. Neck: Full range of motion. No meningismus. Resp: Clear to auscultation bilaterally Cardio: Regular rate and rhythm, no murmurs Abd: Soft, non tender, non distended. Normal bowel sounds Skin: No petechiae or rashes Back: No midline or flank tenderness Ext: No cyanosis, or edema Neur: Awake and alert Psych: Normal Mood and Affect Result Diagram: 02/14/19 0233 02/14/19 0233 Results 24 hrs Laboratory Tests Test 02/14/19 02:32 02/14/19 02:33 Blood Gas Specimen Source Blood arterial Arterial Blood Date Drawn 02/14/2019 3:38:26 AM Arterial Blood pH (Temp corrected) 7.465 Arterial Blood pCO2 (Temp correct) 36.6 mmhg Arterial Blood pO2 (Temp corrected) 100.2 mmHG Arterial Blood HCO3 25.7 mmol/L Arterial Blood Base Excess 2.1 mmol/L Arterial Blood Oxygen Saturation 97.8 mmHG Gabe Test ACCEPTAB Arterial Blood Gas Puncture Site Right Radial Arterial Blood Carboxyhemoglobin 1.1 % Arterial Blood Methemoglobin 0.1 % Blood Gas A-a O2 Differential 106.8 mmHg Oxyhemoglobin Percent 96.6 % Blood Gas Temperature 37.0 C Blood Gas Respiration Rate 14.0 Blood Gas Actual Respiration Rate 30 Blood Gas Modality MASK - BIPAP FiO2 35.0 % Blood Gas IPAP/EPAP Ratio 15/5 Blood Gas Notified Whom MR Blood Gas Notified Time 02/14/2019 3:45:09 AM White Blood Count 6.4 10^3/ul Red Blood Count 3.28 10^6/ul Hemoglobin 9.9 g/dl Hematocrit 32.3 % Mean Corpuscular Volume 98.5 fl Mean Corpuscular Hemoglobin 30.2 pg Mean Corpuscular Hemoglobin Concent 30.7 g/dl Red Cell Distribution Width 16.0 % Platelet Count 147 10^3/UL Mean Platelet Volume 11.8 fl Immature Granulocytes % 0.500 % Neutrophils % 80.3 % Lymphocytes % 9.8 % Monocytes % 5.2 % Eosinophils % 3.6 % Basophils % 0.6 % Nucleated Red Blood Cells % 0.0 /100WBC Immature Granulocytes # 0.030 10^3/ul Neutrophils # 5.1 10^3/ul Lymphocytes # 0.6 10^3/ul Monocytes # 0.3 10^3/ul Eosinophils # 0.2 10^3/ul Basophils # 0.0 10^3/ul Nucleated Red Blood Cells # 0.0 10^3/ul Prothrombin Time 13.7 Sec Prothrombin Time Ratio 1.1 INR International Normalized Ratio 1.04 Activated Partial Thromboplast Time 34.1 Sec Sodium Level 137 mmol/L Potassium Level 5.2 mmol/L Chloride Level 93 mmol/L Carbon Dioxide Level 31 mmol/L Anion Gap 13 Blood Urea Nitrogen 47 mg/dl Creatinine 5.98 mg/dl Est Glomerular Filtrat Rate mL/min 8 mL/min Glucose Level 626 mg/dl Calcium Level 9.8 mg/dl Total Bilirubin 0.7 mg/dl Direct Bilirubin 0.00 mg/dl Indirect Bilirubin 0.7 mg/dl Aspartate Amino Transf (AST/SGOT) 21 IU/L Alanine Aminotransferase (ALT/SGPT) 26 IU/L Alkaline Phosphatase 111 IU/L Troponin I 0.019 ng/ml B-Type Natriuretic Peptide 84676 PG/ML Total Protein 8.4 g/dl Albumin 4.4 g/dl Globulin 4.00 g/dl Albumin/Globulin Ratio 1.10 Current Medications Medications Dose Sig/Elba Start Time Status Last (Trade) Ordered Route PRN Stop Time Admin Dose Reason Admin Hydralazine 20 mg ONCE ONCE 02/14/19 DC 02/14/19 HCl IV 04:30 04:26 (Apresoline) 02/14/19 04:31 Procedures/MDM EKG: Rate/Rhythm: Normal Sinus Rhythm QRS, ST, T-waves: No changes consistent w/ acute ischemia Impression: No evidence of ischemia or arrhythmia Chest X-ray 1V Interpreted by me: Soft Tissue: No acute abnormalities Bones: No acute abnormalities Mediastinum/Cardiac Silhouette/Lungs: Increased interstitial fluid markings. Impression: CHF Medical decision make: Patient's heart failure symptoms is concerning for acute decompensation and will require inpatient workup and monitoring. Further w/u for ischemia, arrhythmia, PE or dissection will be deferred to the inpatient team. Patient also has evidence of hyperglycemia but no evidence of diabetic ketoacidosis. Patient's blood pressure was also severely elevated and she was given 20 hydralazine intravenous push. Given insulin subcu 10 units. Patient was stable throughout her stay here in the emergency department. Critical Care: Time: 45 minutes, independent of any separately billable procedural time Treatments/Evaluations: Close monitoring and treatment of unstable vital signs, cardiorespiratory, and neurologic status, while maintaining tight balance of fluid, respiratory, and cardiac interventions. Accepting Care Team: Current data and ongoing care discussed. Time: 5:35 AM Primary Provider: Dr. Hare Consulting: Deferred to inpatient team Outstanding Data: none Departure Diagnosis: Primary Impression: Shortness of breath Additional Impression: CHF (congestive heart failure) Heart failure type: unspecified Heart failure chronicity: unspecified Qualified Codes: I50.9 - Heart failure, unspecified Condition: Serious KINGS SNYDER Feb 14, 2019 05:53
[2019-02-14] MEDS ORDERED: INSULIN REGULAR, HUMAN 100 UNIT/1 ML 3ML VIAL SC ONE (06:00)
[2019-02-14] MEDS ORDERED: morphine 4 MG/ML VIAL IV STA (06:51)
[2019-02-14] MEDS ORDERED: ONDANSETRON 4 MG INJ IV PRN (07:00)
[2019-02-14] MEDS ORDERED: ACETAMINOPHEN 325 MG TAB PO PRN (07:00)
[2019-02-14] MEDS ORDERED: GLUCOSE GEL 15 GRAM TUBE BUCCAL PRN (09:30)
[2019-02-14] MEDS ORDERED: GLUCAGON 1 MG INJ IM PRN (09:30)
[2019-02-14] MEDS ORDERED: GLUCOSE GEL 15 GRAM TUBE PO PRN ×2 (09:30)
[2019-02-14] MEDS ORDERED: DEXTROSE 50% 50 ML SYRINGE IV PRN ×2 (09:30)
[2019-02-14] MEDS: ESCITALOPRAM 10 MG TAB PO SCH (10:05)
[2019-02-14] MEDS: ASPIRIN (EC) 81 MG TAB PO SCH (10:06)
[2019-02-14] MEDS: INSULIN GLARGINE [LANTus] (100 UNITS/ML) SYG SC SCH ×2 (10:31→20:47)
[2019-02-14] MEDS: CHOLECALCIFEROL 400 UNITS TAB PO SCH (11:10)
[2019-02-14] MEDS: ISOSORBIDE MONONITRATE(SR)60 MG TAB PO SCH (11:11)
[2019-02-14] MEDS: LISINOPRIL 20 MG TAB PO SCH (11:11)
[2019-02-14] MEDS: BUSPIRONE 5 MG TAB PO SCH ×2 (11:12→20:35)
[2019-02-14] MEDS: CALCIUM ACETATE 667 MG CAP PO SCH ×2 (11:17→17:35)
[2019-02-14] MEDS ORDERED: CALCIUM ACETATE 667 MG CAP PO SCH (11:30)
--- NOTE | 2019-02-14 11:48 | QN ---
Documentation Comment pt seen and examined BRYANT YOO MD Feb 14, 2019 11:48
[2019-02-14] MEDS: AMLODIPINE 10 MG TAB PO SCH (12:17)
[2019-02-14] MEDS: INSULIN ASPART [NOVOLOG] 3 ML PEN SC SCH ×5 (12:28→20:40)
--- NOTE | 2019-02-14 13:29 | RADRPT ---
Echocardiogram Report Patient Name: MILDRED HERNANDEZPatient ID: [id number] : 1985 (33y 3m)Study Date: 02/14/2019 9:01:30 AM Gender: FAccession #: [id number] Tech: Brittany Diehl [facility] Location: 115 Ref.Physician: LARA FERRERA Height(Cm): BSA: Weight(Kg): Quality: AdequateOrder Physician: LARA FERRERA Account #: Procedures: Echocardiographic Report: Transthoracic echocardiogram with complete 2D, M-Mode, and doppler examination. Indications: Shortness of breath. Measurements: 2D/M Mode Doppler Measurement Value Normal Range Measurement Value Normal Range LVIDd 2D 5.1 [ 3.8 - 5.2 ] cm AV Mean Bakari 1.4 [ 70.0 - 90.0 ] cm/sec LVIDs 2D 3.3 [ 2.2 - 3.5 ] cm AV Mean PG 9.0 [ 2.0 - 4.0 ] mmHg LVPWd 2D 1.0 [ 0.6 - 0.9 ] cm AV Peak Bakari 2.0 [ 100.0 - 170.0 ] cm/sec IVSd 2D 1.0 [ 0.6 - 0.9 ] cm AV Peak PG 17.0 [ 2.0 - 9.0 ] mmHg AoR Diam 2D 2.6 [ 2.3 - 3.1 ] cm AV VTI 43.4 cm EDV 2D 123.0 [ 46.0 - 106.0 ] ml LVOT Mean Bakari 1.0 [ 60.0 - 80.0 ] cm/sec ESV 2D 45.1 [ 14.0 - 42.0 ] ml LVOT Mean PG 5.0 [ 1.0 - 3.0 ] mmHg EF 2D 63.3 [ 54.0 - 74.0 ] percent LVOT Peak Bakari 1.5 [ 70.0 - 110.0 ] cm/sec LA Dimen 2D 4.5 [ 2.7 - 3.8 ] cm LVOT Peak PG 8.0 [ 2.0 - 6.0 ] mmHg LVOT VTI 33.4 [ 20.0 - 30.0 ] cm MV E Peak Bakari 1.4 [ 60.0 - 130.0 ] cm/sec MV A Peak Bakari 1.0 [ 100.0 - 120.0 ] cm/sec MV E/A 1.4 [ 0.8 - 1.5 ] ratio MV Decel Time 148 [ 104 - 258 ] msec Lat E` Bakari 0.1 [ 10.0 - 15.0 ] cm/sec Lateral E/E` 16.1 [ 1.0 - 2.0 ] ratio Med E` Bakari 0.1 cm/sec MV E/A 1.4 [ 0.8 - 1.5 ] ratio TR Peak Bakari 3.7 [ 100.0 - 280.0 ] cm/sec TR Peak PG 55.0 mmHg RVSP 63.0 [ 10.0 - 36.0 ] mmHg RA Pressure 8.0 mmHg Findings: Left Ventricle: Normal left ventricular systolic function. Normal left ventricular cavity size. Normal left ventricular wall thickness. Ejection fraction is visually estimated at 60 %. Tissue Doppler/Mitral Doppler indices are within normal limits. Right Ventricle: Normal right ventricular size. Normal right ventricular systolic function. Left Atrium: There is mild enlargement of left atrium. Right Atrium: The right atrium is normal in size. Mitral Valve: Normal appearance and function of the mitral valve with trace physiologic regurgitation. Aortic Valve: Aortic valve Max velocity 2.07 m/sec. Max PG 17.00 mmHg. Mean PG 9.00 mmHg. Aortic sclerosis without significant stenosis. No aortic regurgitation. Tricuspid Valve: Normal appearance of the tricuspid valve. The estimated Peak RVSP is 63 mmHg. There is mild tricuspid regurgitation. Pulmonic Valve: Pulmonic valve not well visualized. Pericardium: Trivial pericardial effusion. Aorta: Normal aortic root. IVC: Normal size and normal respiratory collapse consistent with normal right atrial pressure. Conclusions: Normal left ventricular systolic function. Normal left ventricular cavity size. Normal left ventricular wall thickness. Ejection fraction is visually estimated at 60 %. Tissue Doppler/Mitral Doppler indices are within normal limits. Normal right ventricular size. Normal right ventricular systolic function. Normal appearance and function of the mitral valve with trace physiologic regurgitation. Aortic valve Max velocity 2.07 m/sec. Max PG 17.00 mmHg. Mean PG 9.00 mmHg. Aortic sclerosis without significant stenosis. No aortic regurgitation. Normal size and normal respiratory collapse consistent with normal right atrial pressure. Electronically Signed By: Orion Gaviria 2019-02-14 13:28:27 PDT
--- NOTE | 2019-02-14 16:25 | CONS ---
DATE OF ADMISSION: 02/14/2019 DATE OF CONSULTATION: 02/14/2019 TYPE OF CONSULTATION: Renal. REASON FOR CONSULTATION: Hemodialysis. HISTORY OF PRESENTING ILLNESS: This is a 33-year-old woman with a past medical history of diabetes w ith complication of diabetic neuropathy, nephropathy, retinopathy, history of hypertension, hyperlipi demia, blindness, depression, seizure disorder, end-stage renal disease on hemodialysis for the last 5 years, presented to the emergency department after she was having shortness of breath 3 hours prior to arrival. According to the patient, she changed her dialysis center, has been going Tuesday, , , Tuesday; however she likes to going Tuesday, Tuesday, Tuesday and Tuesday instead. S he went to hemodialysis on Tuesday. She had been 6 to 7 pounds overweight. They removed her 4 liters . The patient said today when she was sleeping all of sudden she felt short of breath. After that, they went to a store and she was doing her chores and she was feeling shortness of breath and made he r come to the emergency department. According to the patient, she has been missing her lots dose of medications as her interior paneler who is her sister is not available. On arrival to ED, vital signs had s howed initial blood pressure of 223/95, pulse of 74, respiratory rate of 19, saturating 100% on BiPAP . Labs showed white count of 6.4, hemoglobin 9.9, platelet count of 147. Potassium was 5.2, sodium was 137. Glucose initially was 571. Lactate was 1.1. The patient received Tylenol, Lantus then IV hydralazine and was admitted for further management. PAST MEDICAL HISTORY: 1. Diabetes with the complications of diabetic neuropathy, retinopathy, nephropathy. 2. End-stage renal disease on hemodialysis, getting dialysis Tuesday, Tuesday, , Tuesday thr ough left upper extremity fistula. 3. Hypertension. 4. Hyperlipidemia. 5. Seizure disorder. 6. Major depressive disorder. 7. Anemia of chronic disease. HOME MEDICATIONS: None. PAST SURGICAL HISTORY: Status post left upper extremity fistula. Had a PermCath placement before. SOCIAL HISTORY: Denies any history smoking, alcohol or any drug use. Lives with her boyfriend who i s legally blind. FAMILY HISTORY: Noncontributory. REVIEW OF SYSTEMS: The patient complains of shortness of breath. Denies any chest pain. Denies any orthopnea, PND. She has some mild lower extremity edema. Denies any hematemesis, any melena, any b right red blood per rectum. Denies any focal neurological deficits. PHYSICAL EXAMINATION: VITAL SIGNS: Currently, blood pressure 164/93, heart rate 70, saturating 99% on 2 liters nasal cannu la. GENERAL: The patient is awake, alert, oriented, does not appear to be any acute distress. HEENT: Pupils are equal, round, reactive to light. LUNGS: Clear to auscultation bilaterally. HEART: Regular rate and rhythm. ABDOMEN: Soft, nontender, nondistended, positive normoactive bowel sounds. EXTREMITIES: A 1+ edema. The patient has a left upper extremity fistula with good bruit and thrill. LABORATORY DATA: Glucose of 571. INR 1.04.: ABG showed pH of 7.46, pCO2 of 36, pO2 of 100. DIAGNOSTIC DATA: Chest x-ray showed mild cardiomegaly, mild pulmonary vascular congestion, rule out CHF, interstitial pulmonary edema. ASSESSMENT AND PLAN: This is a 33-year-old female who presented with: 1. Shortness of breath likely secondary to mild pulmonary edema. The patient has 6 to 7 pounds over weight to her dry weight. The patient had been really noncompliant with diet and her dialysis sessio ns. 2. Diabetes, uncontrolled, really noncompliant to the medications. 3. Hypertension. 4. Hyperlipidemia. 5. Diabetes with the complication of diabetic nephropathy, neuropathy, retinopathy. 6. Hyperlipidemia. 7. Depression. 8. Anxiety disorder. PLAN: At this period of time, the patient is admitted to the ICU. The patient is resumed back on [facility] blood pressure medicines, which are lisinopril, Imdur, hydralazine, Coreg, amlodipine and clonidin e. The patient will receive hemodialysis today. The patient needs strict diabetic control. Rest of the treatment depends on the patient's hospitalization course. The patient was explained strictly a bout the compliance with the diet and fluid restriction. Dictated By: BRYANT MALIK/ALYSSA Conf#: [id number] DID#: [id number] CC: RO CAMILO MD;*[facility]*
--- NOTE | 2019-02-14 18:04 | HP ---
Date/Time of Note Date/Time of Note DATE: 02/14/19 TIME: 17:51 Assessment/Plan VTE Prophylaxis Pharmacological prophylaxis: heparin Lines/Catheters IV Catheter Type (from Nrs): Peripheral IV Urinary Cath still in place: No Assessment/Plan Hospital Course #Shortness of breath in the setting of volume overload in a patient with ESRD, HD per nephrology, supplemental O2 to maintain saturation above 92%, patient c urrently satting normal in room air, she is to be transferred to telemetry floor, echocardiogram was unremarkable #ESRD on hemodialysis, HD per nephrology, case management consultation for change of dialysis center can accommodate [facility] HD schedule #Continue antihypertensives #Insulin-dependent diabetes with severe hyperglycemia, Lantus 14 units 2 times a day + sliding scale insulin, diabetic education,, DME for glucometer # anemia in ESRD, EPO per nephrology #Prophylaxis: Heparin and Pepcid Result Diagram: 02/14/19 0233 02/14/19 0233 Results 24hrs Laboratory Tests Test 02/14/19 02:32 02/14/19 02:33 02/14/19 05:33 02/14/19 05:58 Blood Gas Blood arterial Specimen Source Arterial Blood 02/14/2019 3:38:2 Date Drawn 6 AM Arterial Blood pH 7.465 H (Temp corrected) Arterial Blood 36.6 pCO2 (Temp correct) Arterial Blood 100.2 H pO2 (Temp corrected) Arterial Blood 25.7 HCO3 Arterial Blood 2.1 Base Excess Arterial Blood 97.8 Oxygen Saturation Gabe Test ACCEPTAB Arterial Blood Right Radial Gas Puncture Site Arterial 1.1 Blood Carboxyhemo globin Arterial Blood 0.1 Methemoglobin Blood Gas A-a O2 106.8 H Differential Oxyhemoglobin 96.6 Percent Blood Gas 37.0 Temperature Blood Gas 14.0 Respiration Rate Blood Gas Actual 30 Respiration Rate Blood Gas MASK - BIPAP Modality FiO2 35.0 Blood Gas 15/5 IPAP/EPAP Ratio Blood Gas MR Notified Whom Blood Gas 02/14/2019 3:45:0 Notified Time 9 AM White Blood Count 6.4 Red Blood Count 3.28 L Hemoglobin 9.9 L Hematocrit 32.3 L Mean Corpuscular 98.5 Volume Mean Corpuscular 30.2 Hemoglobin Mean Corpuscular 30.7 L Hemoglobin Concen t Red Cell 16.0 H Distribution Width Platelet Count 147 Mean Platelet 11.8 H Volume Immature 0.500 H Granulocytes % Neutrophils % 80.3 H Lymphocytes % 9.8 L Monocytes % 5.2 Eosinophils % 3.6 Basophils % 0.6 Nucleated Red 0.0 Blood Cells % Immature 0.030 Granulocytes # Neutrophils # 5.1 Lymphocytes # 0.6 L Monocytes # 0.3 Eosinophils # 0.2 Basophils # 0.0 Nucleated Red 0.0 Blood Cells # Prothrombin Time 13.7 Prothrombin Time 1.1 Ratio INR International 1.04 Normalized Ratio Activated 34.1 Partial Thrombopl ast Time Sodium Level 137 Potassium Level 5.2 H Chloride Level 93 L Carbon Dioxide 31 Level Anion Gap 13 Blood Urea 47 H Nitrogen Creatinine 5.98 H Est Glomerular 8 L Filtrat Rate mL/min Glucose Level 626 *H Calcium Level 9.8 Total Bilirubin 0.7 Direct Bilirubin 0.00 Indirect 0.7 Bilirubin Aspartate Amino 21 Transf (AST/SGOT) Alanine 26 Aminotransferase (ALT/SGPT) Alkaline 111 Phosphatase Troponin I 0.019 B-Type 79581 H Natriuretic Peptide Total Protein 8.4 H Albumin 4.4 Globulin 4.00 H Albumin/Globulin 1.10 Ratio Lactic Acid Level 1.1 Bedside Glucose 571 *H Test 02/14/19 06:51 02/14/19 06:52 02/14/19 06:53 02/14/19 10:20 Bedside Glucose 521 *H 348 H Hepatitis B NEGATIVE Surface Antigen Lactic Acid Level 1.1 Test 02/14/19 12:16 Bedside Glucose 289 H HPI/ROS Admit Date/Time Admit Date/Time Feb 14, 2019 at 06:35 Hx of Present Illness 29 years old female with a history of ESRD in the setting of diabetic nephropathy on hemodialysis, insulin-dependent diabetes, diabetic retinopathy, legally blind, history of hypertension hyperlipidemia and anemia of chronic disease who presented with progressively worsening shortness of breath for the past several days. Patient was a started on BiPAP in the emergency room. She was noted to be severely hyperglycemic. She was admitted to medical ICU for sh ortness of breath requiring BiPAP. However shortly after arrival in the ICU she was transitioned to room air without complications. Patient has been changing her dialysis center for the past few months. She needs to be dialyzed 4 times a week. She is requesting to be dialyzed Tuesday and Tuesday. This is scheduled has not been accommodated by her current dialysis center. She has not been able to monitor her glucose levels given procaine glucometer. She denies chest pain. Denies fever or chills. Denies cough. Denies focal weakness or numbness. Denies syncope. PMH/Family/Social Past Medical History Medications Current Medications Ondansetron HCl (Zofran Inj) 4 mg ER BRIDGE PRN IV NAUSEA/VOMITING; Start 02/14/19 at 07:00; Stop 02/15/19 at 06:59 Acetaminophen (Tylenol Tab) 650 mg ER BRIDGE PRN PO .MILD PAIN 1-3 OR TEMP; Start 02/14/19 at 07:00; Stop 02/15/19 at 06:59 Amlodipine Besylate (Norvasc) 10 mg DAILY PO Last administered on 02/14/19at 12:17; Admin Dose 10 MG; Start 02/14/19 at 09:00 Aspirin (Halfprin) 81 mg DAILY PO Last administered on 02/14/19at 10:06; Admin Dose 81 MG; Start 02/14/19 at 09:00 Atorvastatin Calcium (Lipitor) 20 mg QHS PO ; Start 02/14/19 at 21:00 Buspirone HCl (Buspar) 5 mg BID PO Last administered on 02/14/19at 11:12; Admin Dose 5 MG; Start 02/14/19 at 09:00 Calcium Acetate (Phoslo) 2,001 mg WITH MEALS PO ; Start 02/14/19 at 11:30 Calcium Acetate (Phoslo) 667 mg WITH MEALS PO ; Start 02/14/19 at 11:30; Status UNV Carvedilol (Coreg) 25 mg BID PO Last administered on 02/14/19at 10:06; Admin Dose 25 MG; Start 02/14/19 at 09:00 Cholecalciferol (Vitamin D) 400 units DAILY PO Last administered on 02/14/19at 11:10; Admin Dose 400 UNITS; Start 02/14/19 at 09:00 Clonidine (Catapres) 0.2 mg Q8 PO Last administered on 02/14/19at 14:18; Admin Dose 0.2 MG; Start 02/14/19 at 14:00 Escitalopram Oxalate (Lexapro) 5 mg DAILY PO Last administered on 02/14/19at 10:05; Admin Dose 5 MG; Start 02/14/19 at 09:00 Hydralazine HCl (Apresoline) 100 mg TID PO Last administered on 02/14/19at 14:18; Admin Dose 100 MG; Start 02/14/19 at 09:00 Isosorbide Mononitrate (Imdur) 60 mg DAILY PO Last administered on 02/14/19at 11:11; Admin Dose 60 MG; Start 02/14/19 at 09:00 Lisinopril (Zestril) 20 mg DAILY PO Last administered on 02/14/19at 11:11; Admin Dose 20 MG; Start 02/14/19 at 09:00 Insulin Glargine (Lantus) 14 units BID SC Last administered on 02/14/19at 10:31; Admin Dose 14 UNITS; Start 02/14/19 at 09:00 Diagnostic Test (Pha) (Accu-Chek) 1 ea 02 XX ; Start 02/15/19 at 02:00 Insulin Aspart (Novolog Insulin Pen) 6 unit WITH MEALS SC Last administered on 02/14/19at 12:36; Admin Dose 6 UNIT; Start 02/14/19 at 11:30 Insulin Aspart (Novolog Insulin Pen) NOVOLOG *MODERATE* ALGORITHM WITH MEALS BEDTIME SC Last administered on 02/14/19at 12:28; Admin Dose 8 UNIT; Start 02/14/19 at 11:30 Miscellaneous Information 1 ea NOTE XX ; Start 02/14/19 at 09:30 Glucose (Glutose) 15 gm Q15M PRN PO DECREASED GLUCOSE; Start 02/14/19 at 09:30 Glucose (Glutose) 22.5 gm Q15M PRN PO DECREASED GLUCOSE; Start 02/14/19 at 09:30 Dextrose (D50w Syringe) 25 ml Q15M PRN IV DECREASED GLUCOSE; Start 02/14/19 at 09:30 Dextrose (D50w Syringe) 50 ml Q15M PRN IV DECREASED GLUCOSE; Start 02/14/19 at 09:30 Glucagon (Glucagen) 1 mg Q15M PRN IM DECREASED GLUCOSE; Start 02/14/19 at 09:30 Glucose (Glutose) 15 gm Q15M PRN BUCCAL DECREASED GLUCOSE; Start 02/14/19 at 09:30 Coded Allergies: No Known Allergy (Unverified , 02/14/19) Family History Significant Family History: no pertinent family hx Social History Smoking Status: Never smoker Exam/Review of Systems Vital Signs Vitals Vital Signs Date Temp Pulse Resp B/P (MAP) Pulse Ox O2 O2 Flow FiO2 Time Delivery Rate 02/14/19 63 17:20 02/14/19 19 139/74 96 Nasal 2.0 15:23 (95) Cannula 02/14/19 98.5 12:00 02/14/19 35 07:30 Exam Exam Gen.: In no acute distress, pleasant and cooperative Eyes: Anicteric, conjunctiva normal, patient is legally blind HEENT: Normocephalic, atraumatic, hearing grossly intact, oral mucosa moist, no oral lesions Neck: Supple, no masses, trachea midline Cardiovascular: Regular rate and rhythm, bilateral peripheral edema, no murmurs, no gallops, no rubs Respiratory: Clear to auscultation bilaterally, no use of accessory muscles of respiration, no wheezes, expiration not prolonged Extremities: No cyanosis, lower extremity edema, no calf tenderness, pulses bilaterally palpable, extremities warm and perfused Abdomen: Soft, not distended, nontender, bowel sounds present, no guarding, no rebound Neurological: Alert and oriented x3, speech normal, CN 2-12 no deficit, no motor or sensory deficit, coordination normal : No To catheter Heme: No acute bleeding, no ecchymosis or petechia LARA FERRERA MD Feb 14, 2019 18:02
[2019-02-14] MEDS: ATORVASTATIN 20 MG TAB PO SCH (20:35)
[2019-02-14] MEDS: HEPARIN 5,000 UNIT/1 ML VIAL SC SCH (20:47)
[2019-02-15] VITALS (14 sets, daily range): BP systolic 119–155; BP diastolic 59–80; PULSE 64–68; RESP 18–20
[2019-02-15] MEDS: ACCU-CHEK XX SCH (03:29)
[2019-02-15] MEDS: INSULIN ASPART [NOVOLOG] 3 ML PEN SC SCH ×7 (07:47→21:00)
[2019-02-15] MEDS: CALCIUM ACETATE 667 MG CAP PO SCH ×3 (07:47→17:51)
[2019-02-15] MEDS: CHOLECALCIFEROL 400 UNITS TAB PO SCH (09:13)
[2019-02-15] MEDS: BUSPIRONE 5 MG TAB PO SCH ×2 (09:13→21:43)
[2019-02-15] MEDS: FAMOTIDINE 20 MG TAB PO SCH (09:14)
[2019-02-15] MEDS: ESCITALOPRAM 10 MG TAB PO SCH (09:14)
[2019-02-15] MEDS: ASPIRIN (EC) 81 MG TAB PO SCH (09:15)
[2019-02-15] MEDS: ISOSORBIDE MONONITRATE(SR)60 MG TAB PO SCH (09:16)
[2019-02-15] MEDS: LISINOPRIL 20 MG TAB PO SCH (09:16)
[2019-02-15] MEDS: AMLODIPINE 10 MG TAB PO SCH (09:17)
[2019-02-15] MEDS: INSULIN GLARGINE [LANTus] (100 UNITS/ML) SYG SC SCH ×2 (09:18→22:01)
[2019-02-15] MEDS: HEPARIN 5,000 UNIT/1 ML VIAL SC SCH ×2 (09:20→21:42)
--- NOTE | 2019-02-15 11:21 | PDOCDIS ---
Discharge Instructions CONDITION [id number] Patient Condition: [id number] Stable HOME CARE INSTRUCTIONS: [id number] Diet Instructions: [id number] INTMENTS Follow-up Plan Please go to your dialysis center immediately after discharge . You have an appointment at 1:30 PM. LARA FERRERA MD Feb 15, 2019 11:21
--- NOTE | 2019-02-15 11:22 | DS ---
Date/Time of Note Date/Time of Note DATE: 02/15/19 TIME: 11:22 Discharge Summary Admission/Discharge Info Admit Date/Time Feb 14, 2019 at 06:35 Discharge Date/Time Patient Condition: Stable Hx of Present Illness 29 years old female with a history of ESRD in the setting of diabetic nephropathy on hemodialysis, insulin-dependent diabetes, diabetic retinopathy, legally blind, history of hypertension hyperlipidemia and anemia of chronic disease who presented with progressively worsening shortness of breath for the past several days. Patient was a started on BiPAP in the emergency room. She was noted to be severely hyperglycemic. She was admitted to medical ICU for shortness of breath requiring BiPAP. However shortly after arrival in the ICU she was transitioned to room air without complications. Patient has been changing her dialysis center for the past few months. She needs to be dialyzed 4 times a week. She is requesting to be dialyzed Tuesday and Tuesday. This is scheduled has not been accommodated by her current dialysis center. She has not been able to monitor her glucose level s given procaine glucometer. She denies chest pain. Denies fever or chills. Denies cough. Denies focal weakness or numbness. Denies syncope. Hospital Course #Shortness of breath in the setting of volume overload in a patient with ESRD, S/p HD per nephrology, improved , patient satting normal in room air, on DC , echocardiogram was unremarkable #ESRD on hemodialysis, HD per nephrology, case management consultation for change of dialysis center can accommodate [facility] HD schedule, she had extra HD session while inpatient , She will have the next session on the day of discharge at 5 PM #Continue antihypertensives #Insulin-dependent diabetes with severe hyperglycemia, Lantus + sliding scale insulin, diabetic education,, DME for glucometer # anemia in ESRD, EPO per nephrology Home Meds Active Scripts Acetaminophen* (Tylophen*) 500 Mg Capsule, 1 CAP PO Q6H PRN for PAIN AND OR ELEVATED TEMP, #20 CAP Prov:AMELIE QUINTERO MD 02/19/19 Insulin Aspart* (Novolog Insulin Pen*) 100 Unit/Ml Soln, 5 UNIT SC WITH MEALS for 30 Days, #10 ML Prov:LARA FERRERA MD 02/16/19 Lisinopril* (Lisinopril*) 20 Mg Tablet, 40 MG PO DAILY for 30 Days, #30 TAB Prov:LARA FERRERA MD 02/16/19 [Insulin Glargine] 100 UNITS/ML SOLN No Conflict Check, 20 UNITS SC HS Prov:LARA FERRERA MD 02/16/19 Escitalopram Oxalate* (Escitalopram Oxalate*) 10 Mg Tablet, 5 MG PO DAILY for 30 Days, #30 TAB Prov:JAM MARTIN M.D. 12/23/18 Buspirone Hcl* (Buspirone Hcl*) 5 Mg Tab, 5 MG PO BID for 30 Days, #60 TAB Prov:JAM MARTIN M.D. 12/23/18 Calcium Acetate* (Calcium Acetate*) 667 Mg Capsule, 667 MG PO WITH MEALS for 30 Days, CAP Prov:ROSANNE RICARDO MD 12/22/18 Clonidine Hcl* (Clonidine Hcl*) 0.2 Mg Tablet, 0.2 MG PO Q8, #90 TAB Prov:ROSANNE RICARDO MD 12/22/18 Hydrocodone Bit-Acetaminophen (Hydrocodone Bit-APAP) 5-325MG Tablet, 1 TAB PO Q4 PRN for mod pain for 10 Days, TAB Prov:ROSANNE RICARDO MD 12/21/18 Amlodipine Besylate* (Amlodipine Besylate*) 10 Mg Tablet, 10 MG PO DAILY for 30 Days, TAB 3 Refills Prov:ROSANNE RICARDO MD 12/21/18 Reported Medications Calcium Acetate* (Calcium Acetate*) 667 Mg Capsule, 2001 MG PO WITH MEALS, #90 CAP 12/20/18 Carvedilol* (Carvedilol*) 25 Mg Tablet, 25 MG PO BID, #60 TAB 12/20/18 Aspirin* (Aspirin* EC) 81 Mg Tablet.dr, 81 MG PO DAILY, TAB 12/20/18 Atorvastatin Calcium* (Atorvastatin Calcium*) 20 Mg Tablet, 20 MG PO QHS, #30 TAB 12/20/18 Cholecalciferol* (Vitamin D*) 400 Unit Tablet, 400 UNIT PO DAILY, TAB 12/20/18 Isosorbide Mononitrate* (Isosorbide Mononitrate*) 60 Mg Tab.er.24h, 60 MG PO DAILY, TAB 12/20/18 Hydralazine Hcl* (Hydralazine Hcl*) 100 Mg Tablet, 100 MG PO TID, #90 TAB 12/20/18 Discontinued Reported Medications Imatinib Mesylate* (Gleevec*) 400 Mg Tablet, 400 MG PO DAILY, TAB 12/20/18 Insulin Glargine* (Lantus*) 100 Unit/Ml Soln, 25 UNIT SC QHS, #1 VIAL 12/20/18 Oxycodone Hcl* (IR) (Oxycodone Hcl*) 30 Mg Tablet, 30 MG PO Q12H PRN for PAIN, TAB 12/20/18 Discontinued Scripts [Insulin Glargine] 100 UNITS/ML SOLN No Conflict Check, 29 UNITS SC DAILY@0800 for 30 Days Prov:ROSANNE RICARDO MD 12/22/18 Clonidine Hcl* (Catapres*) 0.2 Mg Tablet, 0.2 MG PO TID for 30 Days, TAB Prov:ROSANNE RICARDO MD 12/22/18 Lisinopril* (Lisinopril*) 20 Mg Tablet, 40 MG PO DAILY for 30 Days, TAB Prov:ROSANNE RICARDO MD 12/21/18 Follow-up Plan Please go to your dialysis center immediately after discharge . You have an appointment at 1:30 PM. Primary Care Provider Justina Mullen MD Pending Labs Laboratory Tests Test 02/14/19 12:16 02/14/19 18:13 02/14/19 20:40 02/15/19 05:53 Bedside 289 115 103 Glucose mg/dL (70-220) mg/dL (70-220) mg/dL (70-220) White Blood 6.0 Count 10^3/ul (4.8-1 0.8) Red Blood 2.99 Count 10^6/ul (4.20- 5.40) Hemoglobin 9.1 g/dl (12.0-16. 0) Hematocrit 29.4 % (37.0-47.0) Mean 98.3 Corpuscular fl (82.0-101.0 Volume ) Mean 30.4 Corpuscular pg (29.0-33.0) Hemoglobin Mean 31.0 Corpuscular g/dl (32.0-37. Hemoglobin Conc 0) ent Red Cell 16.1 Distribution % (11.5-14.5) Width Platelet Count 128 10^3/UL (140-4 15) Mean Platelet 11.3 Volume fl (7.4-10.4) Immature 0.300 Granulocytes % % (0.001-0.429 ) Neutrophils % 67.5 % (39.0-77.0) Lymphocytes % 18.9 % (15.0-51.0) Monocytes % 6.3 % (0.0-11.0) Eosinophils % 5.8 % (0.0-7.0) Basophils % 1.2 % (0.0-2.0) Nucleated Red 0.0 Blood Cells % /100WBC (0.0-0 .0) Immature 0.020 Granulocytes # 10^3/ul (0.0-0 .031) Neutrophils # 4.1 10^3/ul (1.6-7 .5) Lymphocytes # 1.1 10^3/ul (0.8-2 .9) Monocytes # 0.4 10^3/ul (0.3-0 .9) Eosinophils # 0.4 10^3/ul (0.0-0 .5) Basophils # 0.1 10^3/ul (0.0-0 .1) Nucleated Red 0.0 Blood Cells # 10^3/ul (0.0-0 .0) Sodium Level 138 mmol/L (135-14 4) Potassium 4.8 Level mmol/L (3.5-5. 1) Chloride Level 96 mmol/L (97-110 ) Carbon Dioxide 32 Level mmol/L (21-31) Anion Gap 10 (5-13) Blood Urea 38 Nitrogen mg/dl (7-20) Creatinine 4.85 mg/dl (0.44-1. 00) Est Glomerular 10 Filtrat mL/min (>60) Rate mL/min Glucose Level 117 mg/dl (70-220) Calcium Level 8.8 mg/dl (8.4-10. 2) Phosphorus 3.4 Level mg/dl (2.5-4.9 ) Magnesium 2.1 Level mg/dl (1.7-2.5 ) Total 0.6 Bilirubin mg/dl (0.2-1.3 ) Direct 0.00 Bilirubin mg/dl (0.00-0. 20) Indirect 0.6 Bilirubin mg/dl (0-1.1) Aspartate Amino 20 Transf (AST/SGO IU/L (15-46) T) Alanine 27 Aminotransferas IU/L (13-69) e (ALT/SGPT) Alkaline 82 Phosphatase IU/L (42-121) Total Protein 7.2 g/dl (6.1-8.1) Albumin 3.6 g/dl (3.3-4.9) Globulin 3.60 g/dl (1.3-3.2) Albumin/Globuli 1.00 n Ratio Test 02/15/19 07:46 Bedside 140 Glucose mg/dL (70-220) Microbiology Date/Time Source Procedure Growth Status 02/14/19 22:00 Nares MRSA Screen - Preliminary Screening in process Resulted LARA FERRERA MD Feb 15, 2019 11:22
--- NOTE | 2019-02-15 14:04 | CONS ---
Assessment/Plan Assessment/Plan Assessment/Plan (Daily) his is a 33-year-old female who presented with: 1. Shortness of breath likely secondary to mild pulmonary edema. The patient has 6 to 7 pounds overweight to her dry weight. The patient had been really noncompliant with diet and her dialysis sessions. 2. Diabetes, uncontrolled, really noncompliant to the medications. 3. Hypertension. 4. Hyperlipidemia. 5. Diabetes with the complication of diabetic nephropathy, neuropathy, retinopathy. 6. Hyperlipidemia. 7. Depression. 8. Anxiety disorder. plan -Gets dialysis 4 times a week, Tuesday - Patient could not go to her dialysis center today even though the session was in 1:30, do HD today in-house and then patient can be discharged and follow with her HD center tomorrow for her regular HD center - explained about the compliance - Consultation Date/Type/Reason Admit Date/Time Feb 14, 2019 at 06:35 Initial Consult Date Date/Time of Note DATE: 02/15/19 TIME: 14:01 24 HR Interval Summary Free Text/Dictation Post HD yesterday BP stable and sugars are better controlled Exam/Review of Systems Exam Vitals Vital Signs Date Temp Pulse Resp B/P (MAP) Pulse Ox O2 O2 Flow FiO2 Time Delivery Rate 02/15/19 97.9 65 20 121/66 95 Room Air 11:02 (84) 02/15/19 2.0 09:09 02/14/19 35 07:30 Intake and Output 02/14/19 02/14/19 02/15/19 1515:00 23:00 07:00 IntakeIntake Total 120 ml 170 ml OutputOutput Total 4100 ml BalanceBalance 120 ml -3930 ml Exam GENERAL: The patient is awake, alert, oriented, does not appear to be any acute distress. HEENT: Pupils are equal, round, reactive to light. LUNGS: Clear to auscultation bilaterally. HEART: Regular rate and rhythm. ABDOMEN: Soft, nontender, nondistended, positive normoactive bowel sounds. EXTREMITIES: A 1+ edema. The patient has a left upper extremity fistula with good bruit and thril Results Result Diagram: 02/15/19 0553 02/15/19 0553 Results 24hrs Laboratory Tests Test 02/14/19 18:13 02/14/19 20:40 02/15/19 05:53 02/15/19 07:46 Bedside Glucose 115 103 140 White Blood Count 6.0 Red Blood Count 2.99 L Hemoglobin 9.1 L Hematocrit 29.4 L Mean Corpuscular 98.3 Volume Mean Corpuscular 30.4 Hemoglobin Mean Corpuscular 31.0 L Hemoglobin Concent Red Cell 16.1 H Distribution Width Platelet Count 128 L Mean Platelet Volume 11.3 H Immature 0.300 Granulocytes % Neutrophils % 67.5 Lymphocytes % 18.9 Monocytes % 6.3 Eosinophils % 5.8 Basophils % 1.2 Nucleated Red Blood 0.0 Cells % Immature 0.020 Granulocytes # Neutrophils # 4.1 Lymphocytes # 1.1 Monocytes # 0.4 Eosinophils # 0.4 Basophils # 0.1 Nucleated Red Blood 0.0 Cells # Sodium Level 138 Potassium Level 4.8 Chloride Level 96 L Carbon Dioxide Level 32 H Anion Gap 10 Blood Urea Nitrogen 38 H Creatinine 4.85 #H Est Glomerular 10 L Filtrat Rate mL/min Glucose Level 117 # Calcium Level 8.8 Phosphorus Level 3.4 Magnesium Level 2.1 Total Bilirubin 0.6 Direct Bilirubin 0.00 Indirect Bilirubin 0.6 Aspartate Amino 20 Transf (AST/SGOT) Alanine 27 Aminotransferase (AL T/SGPT) Alkaline Phosphatase 82 Total Protein 7.2 # Albumin 3.6 Globulin 3.60 H Albumin/Globulin 1.00 Ratio Test 02/15/19 12:06 Bedside Glucose 106 Medications Medication Current Medications Amlodipine Besylate (Norvasc) 10 mg DAILY PO Last administered on 02/15/19 09:17; Admin Dose 10 MG; Start 02/14/19 at 09:00 Aspirin (Halfprin) 81 mg DAILY PO Last administered on 02/15/19at 09:15; Admin Dose 81 MG; Start 02/14/19 at 09:00 Atorvastatin Calcium (Lipitor) 20 mg QHS PO Last administered on 02/14/19at 20:35; Admin Dose 20 MG; Start 02/14/19 at 21:00 Buspirone HCl (Buspar) 5 mg BID PO Last administered on 02/15/19 09:13; Admin Dose 5 MG; Start 02/14/19 at 09:00 Calcium Acetate (Phoslo) 2,001 mg WITH MEALS PO Last administered on 02/15/19at 12:06; Admin Dose 2,001 MG; Start 02/14/19 at 11:30 Calcium Acetate (Phoslo) 667 mg WITH MEALS PO ; Start 02/14/19 at 11:30; Status UNV Carvedilol (Coreg) 25 mg BID PO Last administered on 02/15/19 09:15; Admin Dose 25 MG; Start 02/14/19 at 09:00 Cholecalciferol (Vitamin D) 400 units DAILY PO Last administered on 02/15/19 09:13; Admin Dose 400 UNITS; Start 02/14/19 at 09:00 Clonidine (Catapres) 0.2 mg Q8 PO Last administered on 02/15/19 06:17; Admin Dose 0.2 MG; Start 02/14/19 at 14:00 Escitalopram Oxalate (Lexapro) 5 mg DAILY PO Last administered on 02/15/19 09 :14; Admin Dose 5 MG; Start 02/14/19 at 09:00 Hydralazine HCl (Apresoline) 100 mg TID PO Last administered on 02/15/19 13:23; Admin Dose 100 MG; Start 02/14/19 at 09:00 Isosorbide Mononitrate (Imdur) 60 mg DAILY PO Last administered on 02/15/19 09:16; Admin Dose 60 MG; Start 02/14/19 at 09:00 Lisinopril (Zestril) 20 mg DAILY PO Last administered on 02/15/19 09:16; Admin Dose 20 MG; Start 02/14/19 at 09:00 Insulin Glargine (Lantus) 14 units BID SC Last administered on 02/15/19 09:18; Admin Dose 14 UNITS; Start 02/14/19 at 09:00 Diagnostic Test (Pha) (Accu-Chek) 1 ea 02 XX ; Start 02/15/19 at 02:00 Insulin Aspart (Novolog Insulin Pen) 6 unit WITH MEALS SC Last administered on 02/15/19 12:11; Admin Dose 6 UNIT; Start 02/14/19 at 11:30 Insulin Aspart (Novolog Insulin Pen) NOVOLOG *MODERATE* ALGORITHM WITH MEALS BEDTIME SC Last administered on 02/14/19 12:28; Admin Dose 8 UNIT; Start 02/14/19 at 11:30 Miscellaneous Information 1 ea NOTE XX ; Start 02/14/19 at 09:30 Glucose (Glutose) 15 gm Q15M PRN PO DECREASED GLUCOSE; Start 02/14/19 at 09:30 Glucose (Glutose) 22.5 gm Q15M PRN PO DECREASED GLUCOSE; Start 02/14/19 at 09:30 Dextrose (D50w Syringe) 25 ml Q15M PRN IV DECREASED GLUCOSE; Start 02/14/19 at 09:30 Dextrose (D50w Syringe) 50 ml Q15M PRN IV DECREASED GLUCOSE; Start 02/14/19 at 09:30 Glucagon (Glucagen) 1 mg Q15M PRN IM DECREASED GLUCOSE; Start 02/14/19 at 09:30 Glucose (Glutose) 15 gm Q15M PRN BUCCAL DECREASED GLUCOSE; Start 02/14/19 at 09:30 Heparin Sodium (Porcine) (Heparin (5000 Units/1ml)) 5,000 unit BID SC Last administered on 02/15/19at 09:20; Admin Dose 5,000 UNIT; Start 02/14/19 at 21:00 Famotidine (Pepcid) 20 mg DAILY PO Last administered on 02/15/19at 09:14; Admin Dose 20 MG; Start 02/15/19 at 09:00 BRYANT YOO MD Feb 15, 2019 14:04
[2019-02-15] MEDS ORDERED: LIDOCAINE 1% (MDV) 20 ML INJ INJ PRN (19:00)
--- NOTE | 2019-02-15 19:00 | PN ---
Date/Time of Note Date/Time of Note DATE: 02/15/19 TIME: 18:55 Assessment/Plan VTE Prophylaxis Risk score (from Nsg)>0 risk: 4 SCD applied (from Nsg): Yes Pharmacological prophylaxis: heparin Lines/Catheters IV Catheter Type (from Nrsg): Peripheral IV Urinary Cath still in place: No Assessment/Plan Hospital Course 29 years old female with a history of ESRD in the setting of diabetic nephropathy on hemodialysis, insulin-dependent diabetes, diabetic retinopathy, legally blind, history of hypertension hyperlipidemia and anemia of chronic disease who presented with progressively worsening shortness of breath for the past several days. Patient was a started on BiPAP in the emergency room. She was noted to be severely hyperglycemic. She was admitted to medical ICU for shortness of breath requiring BiPAP. However shortly after arrival in the ICU she was transitioned to room air without complications. Patient has been changing her dialysis center for the past few months. She needs to be dialyzed 4 times a week. She is requesting to be dialyzed Tuesday and Tuesday. This scheduled has not been accommodated by her current dialysis center. She has not been able to monitor her glucose levels given procaine glucometer. She denies chest pain. Denies fever or chills. Denies cough. Denies focal weakness or numbness. Denies syncope. Patient was dialyzed following admission. Plan was made to dialyzed her an extra session on 02/15 and discharge her. Her next HD session will be tomorrow as outpatient . CM has conformed her appointment tomorrow 02/16 . #Shortness of breath in the setting of volume overload in a patient with ESRD, H D per nephrology, supplemental O2 to maintain saturation above 92%, patient currently saturating normal in room air, she is to be transferred to telemetry floor, echocardiogram was unremarkable #ESRD on hemodialysis, HD per nephrology, case management consultation for arrangement of HD session 4 times a week as outpatient #Continue antihypertensives #Insulin-dependent diabetes with severe hyperglycemia, Lantus 14 units 2 times a day + sliding scale insulin, diabetic education,, DME for glucometer # anemia in ESRD, EPO per nephrology #Prophylaxis: Heparin and Pepcid Result Diagram: 02/15/19 0553 02/15/19 0553 Results 24hrs Laboratory Tests Test 02/14/19 20:40 02/15/19 05:53 02/15/19 07:46 02/15/19 12:06 Bedside Glucose 103 140 106 White Blood Count 6.0 Red Blood Count 2.99 L Hemoglobin 9.1 L Hematocrit 29.4 L Mean Corpuscular 98.3 Volume Mean Corpuscular 30.4 Hemoglobin Mean Corpuscular 31.0 L Hemoglobin Concent Red Cell 16.1 H Distribution Width Platelet Count 128 L Mean Platelet Volume 11.3 H Immature 0.300 Granulocytes % Neutrophils % 67.5 Lymphocytes % 18.9 Monocytes % 6.3 Eosinophils % 5.8 Basophils % 1.2 Nucleated Red Blood 0.0 Cells % Immature 0.020 Granulocytes # Neutrophils # 4.1 Lymphocytes # 1.1 Monocytes # 0.4 Eosinophils # 0.4 Basophils # 0.1 Nucleated Red Blood 0.0 Cells # Sodium Level 138 Potassium Level 4.8 Chloride Level 96 L Carbon Dioxide Level 32 H Anion Gap 10 Blood Urea Nitrogen 38 H Creatinine 4.85 #H Est Glomerular 10 L Filtrat Rate mL/min Glucose Level 117 # Calcium Level 8.8 Phosphorus Level 3.4 Magnesium Level 2.1 Total Bilirubin 0.6 Direct Bilirubin 0.00 Indirect Bilirubin 0.6 Aspartate Amino 20 Transf (AST/SGOT) Alanine 27 Aminotransferase (AL T/SGPT) Alkaline Phosphatase 82 Total Protein 7.2 # Albumin 3.6 Globulin 3.60 H Albumin/Globulin 1.00 Ratio Test 02/15/19 17:45 Bedside Glucose 125 Subjective 24 Hr Interval Summary Free Text/Dictation No SOB, no CP , no fever , no chills Exam/Review of Systems Exam Vitals Vital Signs Date Temp Pulse Resp B/P (MAP) Pulse Ox O2 O2 Flow FiO2 Time Delivery Rate 02/15/19 98.3 68 20 119/59 95 Room Air 15:01 (79) 02/15/19 2.0 09:09 02/14/19 35 07:30 Intake and Output 02/14/19 02/14/19 02/15/19 1515:00 23:00 07:00 IntakeIntake Total 120 ml 170 ml OutputOutput Total 4100 ml BalanceBalance 120 ml -3930 ml Exam Gen.: In no acute distress, pleasant and cooperative Eyes: Anicteric, conjunctiva normal, patient is legally blind HEENT: Normocephalic, atraumatic, hearing grossly intact, oral mucosa moist, no oral lesions Neck: Supple, no masses, trachea midline Cardiovascular: Regular rate and rhythm, bilateral peripheral edema, no murmurs, no gallops, no rubs Respiratory: Clear to auscultation bilaterally, no use of accessory muscles of respiration, no wheezes, expiration not prolonged Extremities: No cyanosis, lower extremity edema, no calf tenderness, pulses bilaterally palpable, extremities warm and perfused Abdomen: Soft, not distended, nontender, bowel sounds present, no guarding, no rebound Neurological: Alert and oriented x3, speech normal, CN 2-12 no deficit, no motor or sensory deficit, coordination normal : No To catheter Heme: No acute bleeding, no ecchymosis or petechia Results Results 24hrs Laboratory Tests Test 02/14/19 20:40 02/15/19 05:53 02/15/19 07:46 02/15/19 12:06 Bedside Glucose 103 140 106 White Blood Count 6.0 Red Blood Count 2.99 L Hemoglobin 9.1 L Hematocrit 29.4 L Mean Corpuscular 98.3 Volume Mean Corpuscular 30.4 Hemoglobin Mean Corpuscular 31.0 L Hemoglobin Concent Red Cell 16.1 H Distribution Width Platelet Count 128 L Mean Platelet Volume 11.3 H Immature 0.300 Granulocytes % Neutrophils % 67.5 Lymphocytes % 18.9 Monocytes % 6.3 Eosinophils % 5.8 Basophils % 1.2 Nucleated Red Blood 0.0 Cells % Immature 0.020 Granulocytes # Neutrophils # 4.1 Lymphocytes # 1.1 Monocytes # 0.4 Eosinophils # 0.4 Basophils # 0.1 Nucleated Red Blood 0.0 Cells # Sodium Level 138 Potassium Level 4.8 Chloride Level 96 L Carbon Dioxide Level 32 H Anion Gap 10 Blood Urea Nitrogen 38 H Creatinine 4.85 #H Est Glomerular 10 L Filtrat Rate mL/min Glucose Level 117 # Calcium Level 8.8 Phosphorus Level 3.4 Magnesium Level 2.1 Total Bilirubin 0.6 Direct Bilirubin 0.00 Indirect Bilirubin 0.6 Aspartate Amino 20 Transf (AST/SGOT) Alanine 27 Aminotransferase (AL T/SGPT) Alkaline Phosphatase 82 Total Protein 7.2 # Albumin 3.6 Globulin 3.60 H Albumin/Globulin 1.00 Ratio Test 02/15/19 17:45 Bedside Glucose 125 Medications Medication Current Medications Amlodipine Besylate (Norvasc) 10 mg DAILY PO Last administered on 02/15/19at 09:17; Admin Dose 10 MG; Start 02/14/19 at 09:00 Aspirin (Halfprin) 81 mg DAILY PO Last administered on 02/15/19 09:15; Admin Dose 81 MG; Start 02/14/19 at 09:00 Atorvastatin Calcium (Lipitor) 20 mg QHS PO Last administered on 02/14/19 20:35; Admin Dose 20 MG; Start 02/14/19 at 21:00 Buspirone HCl (Buspar) 5 mg BID PO Last administered on 02/15/19 09:13; Admin Dose 5 MG; Start 02/14/19 at 09:00 Calcium Acetate (Phoslo) 2,001 mg WITH MEALS PO Last administered on 02/15/19 17:51; Admin Dose 2,001 MG; Start 02/14/19 at 11:30 Calcium Acetate (Phoslo) 667 mg WITH MEALS PO ; Start 02/14/19 at 11:30; Status UNV Carvedilol (Coreg) 25 mg BID PO Last administered on 02/15/19 09:15; Admin Dose 25 MG; Start 02/14/19 at 09:00 Cholecalciferol (Vitamin D) 400 units DAILY PO Last administered on 02/15/19 09:13; Admin Dose 400 UNITS; Start 02/14/19 at 09:00 Clonidine (Catapres) 0.2 mg Q8 PO Last administered on 02/15/19 15:23; Admin Dose 0.2 MG; Start 02/14/19 at 14:00 Escitalopram Oxalate (Lexapro) 5 mg DAILY PO Last administered on 02/15/19 09:14; Admin Dose 5 MG; Start 02/14/19 at 09:00 Hydralazine HCl (Apresoline) 100 mg TID PO Last administered on 02/15/19 13:23; Admin Dose 100 MG; Start 02/14/19 at 09:00 Isosorbide Mononitrate (Imdur) 60 mg DAILY PO Last administered on 02/15/19 09:16; Admin Dose 60 MG; Start 02/14/19 at 09:00 Lisinopril (Zestril) 20 mg DAILY PO Last administered on 02/15/19 09:16; Admin Dose 20 MG; Start 02/14/19 at 09:00 Insulin Glargine (Lantus) 14 units BID SC Last administered on 02/15/19 09:18; Admin Dose 14 UNITS; Start 02/14/19 at 09:00 Diagnostic Test (Pha) (Accu-Chek) 1 ea 02 XX ; Start 02/15/19 at 02:00 Insulin Aspart (Novolog Insulin Pen) 6 unit WITH MEALS SC Last administered on 02/15/19at 17:51; Admin Dose 6 UNIT; Start 02/14/19 at 11:30 Insulin Aspart (Novolog Insulin Pen) NOVOLOG *MODERATE* ALGORITHM WITH MEALS BEDTIME SC Last administered on 02/14/19at 12:28; Admin Dose 8 UNIT; Start 02/14/19 at 11:30 Miscellaneous Information 1 ea NOTE XX ; Start 02/14/19 at 09:30 Glucose (Glutose) 15 gm Q15M PRN PO DECREASED GLUCOSE; Start 02/14/19 at 09:30 Glucose (Glutose) 22.5 gm Q15M PRN PO DECREASED GLUCOSE; Start 02/14/19 at 09:30 Dextrose (D50w Syringe) 25 ml Q15M PRN IV DECREASED GLUCOSE; Start 02/14/19 at 09:30 Dextrose (D50w Syringe) 50 ml Q15M PRN IV DECREASED GLUCOSE; Start 02/14/19 at 09:30 Glucagon (Glucagen) 1 mg Q15M PRN IM DECREASED GLUCOSE; Start 02/14/19 at 09:30 Glucose (Glutose) 15 gm Q15M PRN BUCCAL DECREASED GLUCOSE; Start 02/14/19 at 09:30 Heparin Sodium (Porcine) (Heparin (5000 Units/1ml)) 5,000 unit BID SC Last administered on 02/15/19at 09:20; Admin Dose 5,000 UNIT; Start 02/14/19 at 21:00 Famotidine (Pepcid) 20 mg DAILY PO Last administered on 02/15/19 09:14; Admin Dose 20 MG; Start 02/15/19 at 09:00 LARA FERRERA MD Feb 15, 2019 19:00
[2019-02-15] MEDS: ATORVASTATIN 20 MG TAB PO SCH (21:46)
[2019-02-16 00:11] VITALS: BP 140/73; PULSE 65; RESP 20
[2019-02-16] MEDS: ACCU-CHEK XX SCH (01:36)
[2019-02-16 04:32] VITALS: BP 171/82; PULSE 68; RESP 18
[2019-02-16 07:08] VITALS: BP 168/82; PULSE 66; RESP 20
[2019-02-16] MEDS: CALCIUM ACETATE 667 MG CAP PO SCH ×2 (07:52→11:55)
[2019-02-16] MEDS: INSULIN ASPART [NOVOLOG] 3 ML PEN SC SCH ×3 (07:54→11:55)
[2019-02-16] MEDS: BUSPIRONE 5 MG TAB PO SCH (08:45)
[2019-02-16] MEDS: ESCITALOPRAM 10 MG TAB PO SCH (08:45)
[2019-02-16] MEDS: FAMOTIDINE 20 MG TAB PO SCH (08:45)
[2019-02-16] MEDS: ASPIRIN (EC) 81 MG TAB PO SCH (08:45)
[2019-02-16] MEDS: CHOLECALCIFEROL 400 UNITS TAB PO SCH (08:46)
[2019-02-16] MEDS: ISOSORBIDE MONONITRATE(SR)60 MG TAB PO SCH (08:46)
[2019-02-16] MEDS: AMLODIPINE 10 MG TAB PO SCH (08:47)
[2019-02-16] MEDS: HEPARIN 5,000 UNIT/1 ML VIAL SC SCH (08:48)
[2019-02-16] MEDS: INSULIN GLARGINE [LANTus] (100 UNITS/ML) SYG SC SCH (08:49)
[2019-02-16] MEDS: LISINOPRIL 20 MG TAB PO SCH (08:58)
[2019-02-16 11:09] VITALS: BP 137/63; PULSE 64; RESP 20
[2019-02-16] MEDS ORDERED: INSULIN GLARGINE [LANTus] (100 UNITS/ML) SYG SC SCH (21:00)
[2019-02-17] MEDS ORDERED: LISINOPRIL 20 MG TAB PO SCH (09:00)
== END 2019-02-16 13:53 | disposition home health service (06) | DRG 640 ==
LOC: E/R 02:21 → ICU 06:35 → 6WM 22:40
PROVIDERS: ADMIT Internal Medicine; ATTEND Internal Medicine
PROC: 5A09357 Assistance with Respiratory Ventilation, Less than 24 Consecutive Hours, Continuous Positive Airway Pressure (ICD-10-PCS; principal; 2019-02-14)
PROC: 5A1D70Z Performance of Urinary Filtration, Intermittent, Less than 6 Hours Per Day (ICD-10-PCS; 2019-02-14)
PROC: 5A1D70Z Performance of Urinary Filtration, Intermittent, Less than 6 Hours Per Day (ICD-10-PCS; 2019-02-15)
DX: E87.70 Fluid overload, unspecified (principal); N18.6 End stage renal disease; I12.0 Hypertensive chronic kidney disease with stage 5 chronic kidney disease or end stage renal disease; E11.21 Type 2 diabetes mellitus with diabetic nephropathy; E11.65 Type 2 diabetes mellitus with hyperglycemia; E11.22 Type 2 diabetes mellitus with diabetic chronic kidney disease; E11.319 Type 2 diabetes mellitus with unspecified diabetic retinopathy without macular edema; D63.1 Anemia in chronic kidney disease; E78.5 Hyperlipidemia, unspecified; G40.909 Epilepsy, unspecified, not intractable, without status epilepticus; F32.9 Major depressive disorder, single episode, unspecified; F41.9 Anxiety disorder, unspecified; Z79.4 Long term (current) use of insulin; Z79.82 Long term (current) use of aspirin; Z99.2 Dependence on renal dialysis
CPT/HCPCS: 36415; 36600; 71045; 80053; 82803; 82962; 83605; 83735; 83880; 84100; 84484; 85025; 85610; 85730; 87081; 87340; 90935; 93005; 93306; 94660; 96372; 96374; 96376; J0360; J1610; J1644; J1815; J2270

== ENCOUNTER 2019-02-19 06:05 | Emergency (ER) | payer OTHER ==
[~2019-02-19] VITALS: Ht 170.2 cm; Wt 91.0 kg
[~2019-02-19 06:05] MED LIST changes: -CLON0.2T12 PO; -IMAT400T19 PO; -INSU100C SQ; -LANT3I SC; -OXYC30TA PO
--- OUTSIDE RECORDS SUMMARY | 2019-02-19 06:06 | XMS REPORT | Clinical Summary ---
Demographics -[phone] [place] Affiliation [facility] Epic is extracted from the [facility] and may not identify all current or past patient conditions. See bel ow for further instructions regarding Mental Health and CDRP patients.[facility] Allergies No Known Allergies Medications Verdana4 Verdana Bd na4d a4d Dine HCl (CATAPRES) Reported on (COREG) 6.25 tive with in (LIPITOR) 40 R Tab 1 tablet ZESTRIL) 40 mg Oral Tab n None Entered (NOVOLOG) 2 (TRAVEL-EA SE, orally ) 25 mg Oral -8 ions: VERTIGO 3 le (PROTONIX) Oral TBEC DR Tab 0 n (ZOFRAN) 4 mg as Active Problems 0 AT [facility] IS m Encounters [id number] re scriptionVerdan KrzzFgswacc5c a4d DOMINAL PAIN (M.D.), M.D. (Primary Dx) Medicine from Last 3 Months Immunizations t Smhzwxh5Ch cks/Day 0 Bd Nbctnut9Ha xoJaipife7p signed at na4Bd Travel WkeSemzsbr3c l Signs Zqjnjbf9Pz dana4d ajxcSgxqdsj0p AM PDT AM PDT M PDT AM PDT AM PDT n 13.3 oz) AM PDT AM PDT AM PDT omments AND Rwyrywz0Qw mmentsVerdana4 d procedure are in the results section. procedure are in the results section. procedure are in the results section. procedure are in the results section. 35 AM PDT procedure are in the results section. procedure are in the results section. 5:35 AM PDT procedure are in the results section. PDT procedure are in the results section. procedure are in the results section. procedure are in the results section. procedure are in the results section. procedure are in the results section. 5:35 AM PDT procedure are in the results section. M PDT procedure are in the results section. DT procedure are in the results section. procedure are in the results section. , PELVIS, KIDNEY, URETER AND BLADDER NO CONTRAS (02/05/2019 7:09 AM PDT) AL / CHRONIC KIDNEY DISEASE( on (M.D.), M.D. - 02/05/2019 7:46 AM PDT CLINICAL HISTORY: Reason: lowoer abd pain Has the patient received a CT KUB within the past 6 months? If the answer is YES, please consider Not ordering aa CT KUB per recommendation by Urology->No COMPARISON: No previous study available. TECHNIQUE: Study performed per protocol. CT Dose: As required by [place] law, the CTDIvol and DLP radiation doses associated with this CT study are listed below. This represents the estimated dose to a standard lucite phantom resulting from the technique used for this study, but is not the dose to this specific patient. Type / CTDIvol / DLP / Phantom Helical / 20.43 / 951.86 / B Total Exam DLP: 951.86 CTDIvol = mGy DLP = mGy-cm Phantom: B=Body32, H=Head16 FINDINGS: ABDOMEN: Lung bases are unremarkable. The lack of intravenous contrast limits the evaluation of solid viscera. No calcifications are seen within the kidney or the courses of the ureters. No hydronephrosis or paranephric soft tissue stranding is seen. What is seen of the solid viscera is normal. Gallbladder has been surgically removed. Calcification is noted in the abdominal aorta. No ascites or fluid collections. No evidence of pneumoperitoneum. No abdominal adenopathy. Visualized GI tract is unremarkable. PELVIS: Urinary bladder is unremarkable. No pelvic adenopathy. Bony structures are unremarkable. IMPRESSION: 1. No significant abnormality of the renal system. 2. Atherosclerosis of the aorta. 3. Cholecystectomy. Evaluation of visceral organs is limited by lack of intravenous contrast. This report electronically signed by Isrrael Wall MD on 02/05/2019 7:41 AM CE * HCG, , SERUM (02/05/2019 5:35 AM PDT) RY t RY [place] [id number] [place] [address], [place] [address] ponent RY t RY [place] [id number] [place] [address], [place] [address] mponent Y t RY [place] [id number] [place] [address], [place] [address] mponent Y t RY [place] [id number] [place] [address], [place] [address] T) RY t RY [place] [id number] [place] [address], [place] [address] Component Y t RY [place] [address] [address] [place] [address] mponent [facility] the CKD-Epi hi s above or below reduced (CKD3 of e albumin renal RY [place] [address] [place] [address] RY [facility] [address] [place] [address] ORY t [facility] [address] [place] [address] 19 5:35 AM PDT) BORATORY BORATORY BORATORY BORATORY BORATORY t [facility] [address] [place] [address] 35 AM PDT) x1000/mcL BORATORY Mill/mcL BORATORY g/dL BORATORY BORATORY BORATORY pg/cell BORATORY g/dL BORATORY BORATORY x1000/mcL [facility] [address] [place] [address] ponent ATORY t [facility] [address] [place] [address] mponent Y t [facility] [address] [place] [id number] AM PDT) ATORY ATORY ATORY ATORY TOMATED COUNT ATORY O COUNT, BLD ATORY TE, NT AMA [facility] [address] [place] [address] nent ORATORY t [facility] [address] [place] [address] Verdana4 Bd t ddress Subscriber Effective ID [id number] 07/04/2016-P [facility]-REGAL on Address [address] [phone] [facility] [address] [place] [place] [address] Advance Directives [id number] RepresentativeVer dana4d ce nd Living Will Hfbynog4Gy 4d Cpccnnu9Qf Ncusrta0n Javufyg5i 17 2:43 PM Ktqdatu8Tg Jzblkth5y Ddaukkt8d 17 10:33 AM Rkqcwmo1Pd Vauvuyp6e Djfjrpz6x 12:36 AM Additional Source Comments FOR RECORDS PERTAINING TO PATIENTS WHO ARE OR HAVE BEEN ENROLLED IN A CHEMICAL D EPENDENCY/SUBSTANCE ABUSE PROGRAM PLEASE NOTE: Some of the enclosed informa tion may contain records from the patient's treatment in a substance abuse progr am that are protected by Federal confidentiality rules (42 CFR part 2). The [place] r[place] rules prohibit you from making any further disclosure of this information un less further disclosure is expressly permitted by the written consent of the per son to whom it pertains or as otherwise permitted by 42 CFR part 2. A general au thorization for the release of medical or other information is NOT sufficient fo r this purpose. The Federal rules restrict any use of the information to crimina lly investigate or prosecute any alcohol or drug abuse patient.[facility]
--- OUTSIDE RECORDS SUMMARY | 2019-02-19 06:07 | XMS REPORT | Encounter Summary ---
Demographics -[phone] us Affiliation rachna Cortez ason [id number] re scriptionVerdan RwizTziesgq7u a4d DOMINAL PAIN (M.D.), (Primary Dx) M.D. [id number] [place] [address] Social History [id number] cks/Day 0 Bd Rwtynii9Rt [id number] signed at na4Bd Travel DgyNwalyfo3q ncounter Last Filed Vital Signs Iqmuzhb3Lb dana4d vtgrKowpfos7c AM PDT AM PDT M PDT AM PDT AM PDT n 13.3 oz) AM PDT AM PDT AM PDT is arge Instructions * Attachments The following attachments cannot be sent through Care Everywhere.* Abdominal Pain, Unknown Cause, (Female) (Tongan) documented in this encounter Medications at Time of Discharge [id number] Plnyptn0Jh a 4d 4d 1 1 Tab / SE, y 6 -8 TabIndication s: Entered (HUMALOG) None Entered (NOVOLOG) 1 tablet TAPRES) Reported on 25 torvastatin with (LIPITOR) 40 1 tablet 1 tablet Tab M.D. - 02/05/2019 5:44 AM PDT EMERGENCY DEPARTMENT NOTE MILDRED QUEEN : 1985 History obtained from the patient. Chief Complaint: ABDOMINAL PAIN; SHORTNESS OF BREATH; and VOMITING History of Present Illness: Mildred Queen is a 33 year old female here reportin g lower abdominal pain and vomiting x2 for the last two days Patient denies chest pain or dyspnea or cough. Triage note appreciated. When ask ed why triage note mentioned shortness of breath, she states her boyfriend was t alking for her out in triage. I asked her several times if she is sure she doesn 't have chest pain or dyspnea. She denies. She states she is here for her lower abdominal pains. Patient is dialysis. Does not make urine. Next session is 5pm today. Duration/Onset: Two days Severity: mild Timing: continuous Modifiers: None Past Medical History: 02/27/2014: SEPSIS WO ACUTE ORGAN DYSFUNCTION Patient Active Problem List: DM 1 W CKD, ESRD ON DIALYSIS HYPERKALEMIA HTN (HYPERTENSION) CAUSE OF INJURY, ACCIDENTAL FALL HEAD LACERATION BILAT BLINDNESS MRSA [facility] PSH - non contributory Outpatient Medications Marked as Taking for the 02/05/19 encounter ([facility]): Insulin Lispro (HUMALOG) 100 unit/mL SubQ Crtg Insulin Aspart (NOVOLOG) 100 unit/mL SubQ Soln cloNIDine HCl (CATAPRES) 0.1 mg Oral Tab Carvedilol (COREG) 6.25 mg Oral Tab Atorvastatin (LIPITOR) 40 mg Oral Tab NIFEdipine (ADALAT CC) 60 mg Oral SR Tab Lisinopril (PRINIVIL/ZESTRIL) 40 mg Oral Tab Folic Acid 1 mg Oral Tab ALLERGIES: No Known Allergies Social History: Social History Tobacco Use Smoking status: Never Smoker Smokeless tobacco: Never Used Alcohol use: No Drug use: No Occupation - Data Unavailable Family History: Non contributory I have reviewed the patient's medical history as outlined above. Review of Systems Constitutional: Negative for fever. HENT: Negative for ear pain. Eyes: Negative for pain. Respiratory: Negative for shortness of breath. Cardiovascular: Negative for chest pain. Gastrointestinal: Positive for abdominal pain and vomiting. Genitourinary: Negative for dysuria. Musculoskeletal: Negative for myalgias. Skin: Negative for rash. Neurological: Negative for headaches. Psychiatric/Behavioral: Negative for confusion. Physical Exam Constitutional: She is oriented to person, place, and time. She appears well-developed and well-nourished. Non-toxic appearance. She does not appear ill. No distress. ED Triage Vitals (02/05/19 0441) BP: (!) 194/91 Pulse: 74 Resp: 20 Temp: 99.1 F (37.3 C) Temp src: n/a SpO2: 98 % Weight: 97.9 kg (215 lb 13.3 oz) Height: 1.702 m (5' 7") Head Circumference: n/a Peak Flow: n/a Pain Score: n/a Pain Loc: n/a Pain Edu?: n/a Excl. in GC?: n/a HENT: Head: Normocephalic and atraumatic. Right Ear: Hearing and external ear normal. Left Ear: Hearing and external ear normal. Nose: Nose normal. Eyes: Pupils are equal, round, and reactive to light. Conjunctivae and lids are normal. Right eye exhibits no discharge. Left eye exhibits no discharge. Neck: Normal range of motion. Neck supple. No tracheal deviation present. Cardiovascular: S1 normal, S2 normal and normal heart sounds. Exam reveals no ga llop and no friction rub. No murmur heard. Pulmonary/Chest: Effort normal and breath sounds normal. She has no wheezes. She has no rhonchi. She has no rales. Abdominal: Soft. Normal appearance. She exhibits no distension. There is no hepatosplenomegaly. There is generalized te nderness. There is no rebound and no guarding. Musculoskeletal: She exhibits no edema. Neurological: She is alert and oriented to person, place, and time. Skin: Skin is warm and dry. No rash noted. She is not diaphoretic. No cyanosis. Psychiatric: She has a normal mood and affect. Her speech is normal. Nursing note and vitals reviewed. ED COURSE Orders placed for this ED visit are as follows: Orders Placed This Encounter CT ABD, PELVIS, KIDNEY, URETER AND BLADDER NO CONTRAS CBC W AUTOMATED DIFFERENTIAL ELECTROLYTE PANEL (NA, K, CL, CO2) BUN CREATININE GLUCOSE CALCIUM BILIRUBIN, TOTAL BILIRUBIN, DIRECT ALKALINE PHOSPHATASE AST ALT LIPASE INR HCG, , SERUM WBC AUTOMATED DIFFERENTIAL MEASURE PULSE OXIMETRY INITIATE CARDIAC MONITORING NURSING COMMUNICATION ORDER morphine Inj Soln 4 mg Ondansetron Rap Dis Tab 4 mg (ZOFRAN ODT) Insulin Regular Human Inj 6 Units (HumuLIN R/NovoLIN R) Pantoprazole (PROTONIX) [address] Tab Ondansetron (ZOFRAN) 4 mg Oral Tab GLUCOSE, POCT, GLUCOMETER, FDA APPROVED RESULTS Laboratory CBC Prior Results Recent Labs 02/05/19 0535 WBC 5.6 NEUT 66.6 ANC 3.71 HGB 10.5* HCT 32.2* PLT 130 WBC (x1000/mcL) Date Value 11/07/2018 4.6 11/11/2017 5.7 10/25/2017 8.4 06/15/2017 10.6 11/08/2016 10.3 HGB (g/dL) Date Value 11/07/2018 12.1 11/11/2017 9.7 (L) 10/25/2017 10.1 (L) 06/15/2017 11.3 (L) 11/08/2016 9.2 (L) Electrolytes Prior Results Recent Labs 02/05/19 0535 NA 136 K 5.3* CL 96* CO2 29 BUN 62* CR 8.27* GFR 6 RBS 278* CA 7.8* NA (mEq/L) Date Value 11/07/2018 128 (L) 11/11/2017 136 10/25/2017 135 06/15/2017 133 (L) 06/15/2017 128 (L) K (mEq/L) Date Value 11/07/2018 4.9 11/11/2017 4.7 10/25/2017 3.9 06/15/2017 5.3 (H) 06/15/2017 5.8 (H) CR (mg/dL) Date Value 11/07/2018 5.91 (H) 11/11/2017 7.84 (H) 10/25/2017 7.29 (H) 06/15/2017 10.55 (H) 11/08/2016 12.64 (H) Liver Function Prior Results Recent Labs 02/05/19 0535 TBILI 1.2* ALKP 89 ALT 18 AST 19 LIPASE 48 No results found for: TBILI No results found for: ALT No results found for: AST No results found for: LIPASE Other Prior Results Recent Labs 02/05/19 0535 INR 1.1 No results for input(s): LACTATE in the last 72 hours. No results for input(s): DDIMER in the last 72 hours. INR (no units) Date Value 11/07/2018 1.1 11/11/2017 1.1 06/15/2017 1.[address] abd/pel: IMPRESSION: 1. No significant abnormality of the renal system. 2. Atherosclerosis of the aorta. 3. Cholecystectomy. Vital Sign Trend Vitals: 02/05/19 0441 02/05/19 0527 02/05/19 0752 BP: (!) 194/91 (!) 196/94 (!) 187/89 BP Patient Position: SITTING BP Location: RA-RIGHT ARM RA-RIGHT ARM RA-RIGHT ARM Pulse: 74 73 72 Resp: 20 16 16 Temp: 99.1 F (37.3 C) SpO2: 98% 98% 93% Weight: 97.9 kg (215 lb 13.3 oz) Height: 1.702 m (5' 7") MEDICAL DECISION MAKING 33 yo here reporting lower abdominal pain for two days No chest pain or dyspnea. Lungs clear. Heart sounds grossly normal. Exam reveals minimal non focal tenderness throughout the abdomen Patient does not make urine CT reveals no acute process. Appendix normal and no diverticulitis per Dr. Ryann bhatt on the phone (the radiologist that read the CT) Patient reports resolution of pain during her Emergency Department stay Offered pelvic exam to check for possible reproductive process. Patient refused. Patient comfortable going home. Patient has dialysis at 5pm today , which she will go ASSESSMENT 1. GENERALIZED ABDOMINAL PAIN PLAN Strict return precautions Shared decision making PCP follow up Dialysis today. Electronically signed by: REHAN MANE MD 02/05/2019 8:16 AM 8:2 0 AM PDT documented in this encounter Plan of Treatment Not on filedocumented as of this encounter Procedures Hnxjlvm0Ne mmentsVerdana4 d procedure are in the results section. procedure are in the results section. procedure are in the results section. DT procedure are in the results section. 5:35 AM PDT procedure are in the results section. PDT procedure are in the results section. procedure are in the results section. procedure are in the results section. M PDT procedure are in the results section. procedure are in the results section. procedure are in the results section. procedure are in the results section. procedure are in the results section. procedure are in the results section. 35 AM PDT procedure are in the results section. procedure are in the results section. 5:35 AM PDT documented in this encounter Results * CT ABD, PELVIS, KIDNEY, URETER AND BLADDER NO CONTRAS (02/05/2019 7:09 AM PDT) AL / CHRONIC KIDNEY DISEASE( jennifer Johnson M.D. - 02/05/2019 7:46 AM PDT CLINICAL HISTORY: Reason: lowoer abd pain Has the patient received a CT KUB within the past 6 months? If the answer is YES, please consider Not ordering aa CT KUB per recommendation by Urology->No COMPARISON: No previous study available. TECHNIQUE: Study performed per protocol. CT Dose: As required by [place] law, the CTDIvol and DLP radiation doses [...] MD on 02/05/2019 7:41 AM CE * WBC AUTOMATED DIFFERENTIAL (02/05/2019 5:35 AM PDT) ATORY ATORY ATORY ATORY TOMATED COUNT ATORY O COUNT, BLD ATORY TE, NT A [facility] RY [place] [id number] [place] [address], [place] [address] DT) RY t [facility] [id number] [place] [address], [place] [address] mponent Y t RY [facility] [id number] [place] [address], [place] [address] Component Y t R[facility] [id number] [place] [address], [place] [address] mponent Y t [facility] [place] [id number] [place] [address], [place] [address] mponent Y t RY [facility] [place] [id number] [place] [address], [place] [address] T) RY t [facility] [id number] [place] [address], [place] [address] RY t RY [facility] [place] [id number] [place] [address], [place] [address] ORY t RY [facility] [id number] [place] [address], [place] [address] ponent ATORY t [facility] [id number] [place] [address] nent ORATORY t [facility] [id number] [place] [address] mponent [facility] the CKD-Epi hi s above or below reduced (CKD3 of e albumin renal [facility] [id number] [place] [address] ponent RY t [facility] [address] [place] [address] 19 5:35 AM PDT) BORATORY BORATORY BORATORY BORATORY BORATORY t [facility] [address] [place] [address] 35 AM PDT) x1000/mcL BORATORY Mill/mcL BORATORY g/dL BORATORY BORATORY BORATORY pg/cell BORATORY g/dL BORATORY BORATORY x1000/mcL [facility] [address] [place] [address] noses Administered Medications Qcguiyh3Cj Jdjcbuz0Yd Xkcetbu4J Beqkvxp5S dana4d 4d Lower Quadrant) Tissue us , ONE TIME, 1 dose, g, intraMUSCULA R, ONE TIME, 1 dose, 6:00 AM PDT Rap Dis Tab 4 mg (ZOFRAN 0600, Dissolve on tongue., 0000 documented in this encounter Additional Source Comments FOR RECORDS PERTAINING TO PATIENTS WHO ARE OR HAVE BEEN ENROLLED IN A CHEMICAL D EPENDENCY/SUBSTANCE ABUSE PROGRAM PLEASE NOTE: Some of the enclosed informa tion may contain records from the patient's treatment in a substance abuse progr am that are protected by Federal confidentiality rules (42 CFR part 2). The [facility] rules prohibit you from making any further [...] or prosecute any alcohol or drug abuse patient.[facility]
[2019-02-19 06:14] VITALS: Ht 170.2 cm; Wt 91.0 kg
[2019-02-19] MEDS ORDERED: ACETAMINOPHEN 325 MG TAB PO ONE (06:30)
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
[2019-02-19] MEDS ORDERED: ONDANSETRON (ODT) 4 MG TAB ODT STA (07:13)
[2019-02-19 07:52] VITALS: BP 188/82; PULSE 77; RESP 18
== END 2019-02-19 07:52 | disposition home or self-care (01) ==
LOC: E/R 06:05
DX: S16.1XXA Strain of muscle, fascia and tendon at neck level, initial encounter (principal); N18.6 End stage renal disease; E11.22 Type 2 diabetes mellitus with diabetic chronic kidney disease; I12.0 Hypertensive chronic kidney disease with stage 5 chronic kidney disease or end stage renal disease; V49.50XA Passenger injured in collision with unspecified motor vehicles in traffic accident, initial encounter; Z79.4 Long term (current) use of insulin; Z79.82 Long term (current) use of aspirin
CPT/HCPCS: 72125; Z7610